=== PATIENT | female | born 1950 | race Caucasian/White ===

== ENCOUNTER 2018-02-12 18:41 | Inpatient (IN) ==
--- NOTE | 2018-02-12 22:26 | ED ---
HPI General Chief complaint: Abdominal Pain Stated complaint: general check up Time Seen by Provider: 02/12/18 21:45 Source: patient Mode of arrival: ambulatory Limitations: no limitations History of Present Illness HPI narrative: 67-year-old female with history of COPD here for evaluation of abdominal pain, abdominal bloating, nausea, and weight loss. Patient reports that her symptoms of nausea and abdominal discomfort have been intermittent for last few months, worse today. She describes diffuse abdominal bloating sensation/discomfort that is moderate, constant, worse with movements. Yesterday she had a few episodes of vomiting that she states was clear and consisted of stomach contents. She denies melena or hematochezia. No hematemesis. No fevers or chills. No urinary symptoms. No chest pain or dyspnea. Her last bowel movement was yesterday after not having had one for 8 days. Related Data Home Medications Medication Instructions Recorded Confirmed No Known Home Medications 02/12/18 02/12/18 Allergies Allergy/AdvReac Type Severity Reaction Status Date / Time codeine AdvReac Mild RASH Unverified 09/25/16 20:59 Review of Systems ROS: all other systems reviewed are negative [facility] Medical History Medical History COPD (chronic obstructive pulmonary disease) (Acute) Social History Social History Substance History: No History of Abuse Second Hand Smoke Exposure: No Smoking Status: Former smoker Tobacco Type: Cigarettes How Often Do You Have a Drink Containing Alcohol: Monthly or less Recent Travel in [facility] within the Last 8 Weeks: No Recent Out of Country Travel within the Last 8 Weeks: No Immunization History Tetanus Immunization: <5 Years Exam Narrative Exam Narrative: GENERAL: Well-developed, well-nourished, awake, alert, comfortable, no apparent distress. SKIN: Focused skin assessment warm/dry. HEAD: Atraumatic. Normocephalic. EYES: Pupils equal and round. No scleral icterus. No injection or drainage. ENT: Mucous membranes pink and moist. NECK: Trachea midline. No JVD. CARDIOVASCULAR: Regular rate and rhythm. No murmur appreciated. RESPIRATORY: No accessory muscle use. Clear to auscultation. Breath sounds equal bilaterally. GASTROINTESTINAL: Abdomen soft, moderately distended, mild diffuse tenderness, no hernias, normal bowel sounds, no peritoneal signs. MUSCULOSKELETAL: No obvious deformities. No clubbing. No cyanosis. No edema. NEUROLOGICAL: Awake and alert. No obvious cranial nerve deficits. Motor grossly within normal limits. Normal speech. PSYCHIATRIC: Appropriate mood and affect; insight and judgment normal. Course Initial Documented Vital Signs Temperature 97.5 F L 02/12/18 19:24 Pulse Rate 94 H 02/12/18 19:24 Respiratory Rate 16 02/12/18 19:24 Blood Pressure 117/65 02/12/18 19:24 Pulse Oximetry 96 02/12/18 19:24 Last Documented Vital Signs Temperature 97.5 F L 02/12/18 19:24 Pulse Rate 90 02/12/18 19:26 Respiratory Rate 20 02/12/18 19:26 Blood Pressure 136/83 02/12/18 19:26 Pulse Oximetry 97 02/12/18 19:26 Medical Decision Making MDM Narrative Medical decision making narrative: Vital signs, labs, and imaging studies were reviewed and were reviewed with the patient who was made aware of all findings. Patient's labs are remarkable for slight renal insufficiency. CT abdomen pelvis: CONCLUSION:1. Dilatation of the colon and to a lesser degree small bowel concerning for ileus or obstruction. There is a questionable transition point in the proximal sigmoid colon. This area could be further evaluated with direct inspection.2. Mild hiatal hernia.3. Emphysematous change in the lungs.4. Hepatic steatosis.5. Possible small gallstones.6. Calcifications at the posterior aspect of the uncinate process which may be from chronic pancreatitis. Otherwise the pancreas appears normal.7. Renal cysts Patient has had a few episodes of clear emesis today, stating that this is been a recurrent issue for the last 4 months where she vomits within an hour after eating or drinking. She reports that she had not had a bowel movement in 8 days until today. On exam her abdomen feels distended. With the above CT findings and report of significant weight loss over the last few months, I am concerned about the possibility of colon cancer, and made the patient aware of this possibility. It sounds as though the patient has been having intermittent bowel obstructions/partial bowel obstructions, and currently appears to at least have a partial SBO today. She will be admitted for further treatment and evaluation. She is amenable with this plan. Case discussed with hospitalist Dr Awad who will admit the patient to the hospitalist service. Medical Screen Exam Complete: Yes Emergency Medical Condition: Yes Differential Diagnosis Differential Diagnosis: Colitis, diverticulitis, pancreatitis, bowel obstruction less likely, appendicitis, mesenteric ischemia, IBS, ileus Lab Data Result diagrams: 02/12/18 22:00 02/12/18 22:00 Lab Results 02/12/18 02/12/18 02/12/18 Range/Units 22:00 22:00 22:00 WBC 9.5 (4.0-11.0) th/mm3 RBC 5.39 H (4.00-5.30) mil/mm3 Hgb 16.0 H (11.6-15.3) gm/dL Hct 46.9 H (35.0-46.0) % MCV 87.1 (80.0-100.0) fL MCH 29.6 (27.0-34.0) pg MCHC 34.0 (32.0-36.0) % RDW 16.9 (11.6-17.2) % Plt Count 259 (150-450) th/mm3 MPV 7.5 (7.0-11.0) fL Neut % (Auto) 89.2 H (16.0-70.0) % Lymph % (Auto) 8.1 L (9.0-44.0) % [place] % (Auto) 1.7 (0.0-8.0) % Eos % (Auto) 0.6 (0.0-4.0) % Baso % (Auto) 0.4 (0.0-2.0) % Neut # (Auto) 8.5 H (1.8-7.7) th/mm3 Lymph # (Auto) 0.8 L (1.0-4.8) th/mm3 [place] # (Auto) 0.2 (0.0-0.9) th/mm3 Eos # (Auto) 0.1 (0.0-0.4) th/mm3 Baso # (Auto) 0.0 (0.0-0.2) th/mm3 WBC Differential . Differential Comment Auto diff final PT 11.1 (9.8-11.6) sec INR 1.1 Ratio APTT 25.2 (23.4-31.7) sec Sodium 136 (136-145) meq/L Potassium 4.6 (3.5-5.1) meq/L Chloride 100 (98-107) meq/L Carbon Dioxide 22.1 (21.0-32.0) meq/L Anion Gap 14 (5-15) meq/L BUN 29 H (7-18) mg/dL Creatinine 1.48 H (0.50-1.00) mg/dL Estimated GFR 35 L (>89) mL/min Random Glucose 111 H (74-106) mg/dL Calcium 9.3 (8.5-10.1) mg/dL Magnesium 2.3 (1.5-2.5) mg/dL Total Bilirubin 0.9 (0.2-1.0) mg/dL AST 23 (15-37) U/L ALT 17 (10-53) U/L Alkaline Phosphatase 82 (45-117) U/L Total Protein 7.7 (6.4-8.2) g/dL Albumin 4.1 (3.4-5.0) g/dL Lipase 100 (73-393) U/L Imaging Data Radiologist's impression: Abdomen/Pelvis CT 02/12/18 21:55 CONCLUSION: 1. Dilatation of the colon and to a lesser degree small bowel concerning for ileus or obstruction. There is a questionable transition point in the proximal sigmoid colon. This area could be further evaluated with direct inspection. 2. Mild hiatal hernia. 3. Emphysematous change in the lungs. 4. Hepatic steatosis. 5. Possible small gallstones. 6. Calcifications at the posterior aspect of the uncinate process which may be from chronic pancreatitis. Otherwise the pancreas appears normal. 7. Renal cysts. Discharge Plan Discharge Disposition Patient Disposition: ED Admit(ED Internal Use Only) Discharge Condition Condition: Stable Discharge Details Diagnosis: Bowel obstruction, Renal insufficiency Physicians Team ED Provider: Wang Goodman Primary Care Provider: UNKNOWN, Rxs /Orders / Referrals /Forms Prescriptions: No Action No Known Home Medications RF: 0 Discharge Interventions Interventions: Vital Signs Last Done: 02/12/18 19:26 Status ED Status: With Doctor
[2018-02-12 22:46] LABS: Baso % (Auto) 0.4 % (0.0-2.0); Eos # (Auto) 0.1 th/mm3 (0.0-0.4); Eos % (Auto) 0.6 % (0.0-4.0); Hematocrit 46.9 % (35.0-46.0); Lymph # (Auto) 0.8 th/mm3 (1.0-4.8); Lymph % (Auto) 8.1 % (9.0-44.0); Mean Corpuscular Hemoglobin 29.6 pg (27.0-34.0); Mean Corpuscular Volume 87.1 fL (80.0-100.0); Mean Platelet Volume 7.5 fL (7.0-11.0); Mono # (Auto) 0.2 th/mm3 (0.0-0.9); Mono % (Auto) 1.7 % (0.0-8.0); Neut # (Auto) 8.5 th/mm3 (1.8-7.7); Neut % (Auto) 89.2 % (16.0-70.0); Platelet Count 259 th/mm3 (150-450); Red Blood Count 5.39 mil/mm3 (4.00-5.30); Red Cell Distribution Width 16.9 % (11.6-17.2); White Blood Count 9.5 th/mm3 (4.0-11.0)
[2018-02-12 23:00] LABS: Activated Partial Thrombo Time 25.2 sec (23.4-31.7); INR 1.1 Ratio; Prothrombin Time 11.1 sec (9.8-11.6)
[2018-02-12 23:01] LABS: Alanine Aminotransferase 17 U/L (10-53); Albumin 4.1 g/dL (3.4-5.0); Anion Gap 14 meq/L (5-15); Aspartate Aminotransferase 23 U/L (15-37); Blood Urea Nitrogen 29 mg/dL (7-18); Calcium 9.3 mg/dL (8.5-10.1); Carbon Dioxide 22.1 meq/L (21.0-32.0); Chloride 100 meq/L (98-107); Glomerular Filtration Rate 35 mL/min (>89); Glucose,Random 111 mg/dL (74-106); Lipase 100 U/L (73-393); Magnesium 2.3 mg/dL (1.5-2.5); Potassium 4.6 meq/L (3.5-5.1); Sodium 136 meq/L (136-145)
[2018-02-12 23:04] LABS: Alkaline Phosphatase 82 U/L (45-117); Total Protein 7.7 g/dL (6.4-8.2)
--- NOTE | 2018-02-13 | CT ---
EXAM DATE: 02/12/2018 11:38 PM EST AGE/SEX: 67 years / Female INDICATIONS: Diffuse abdominal pain off and on for 4 months. CLINICAL DATA: This is the patient's initial encounter. Patient reports that signs and symptoms have been present for 4 - 6 months and indicates a pain score of 6/10. MEDICAL/SURGICAL HISTORY: Chronic obstructive pulmonary disease. None. ORAL CONTRAST: No oral contrast ingested. RADIATION DOSE: 7.19 CTDI (mGy) COMPARISON: No prior exams available for comparison. TECHNIQUE: Multiple contiguous axial images were obtained through the abdomen and pelvis following b olus infusion of 50ml ml Visipaque 320 (iodixanol) nonionic water-soluble contrast as a single exam dose. No oral contrast ingested. Using automated exposure control and adjustment of the mA and/or k V according to patient size, radiation dose was kept as low as reasonably achievable to obtain optima l diagnostic quality images. DICOM format image data is available electronically for review and comp arison. FINDINGS: Lower Lungs: There is emphysematous change seen in the lower lungs. There is a mild amount of pericar dial fluid seen anteriorly. Liver: There is diffuse decreased attenuation to the liver. No focal hepatic lesions are seen. There is minimal calcification within the gallbladder likely related to small stones or calcification at th e gallbladder wall. The gallbladder is not distended. Spleen: Homogeneous density without enlargement. Pancreas: Unremarkable without mass. There are a few calcifications seen at the posterior aspect of the uncinate process. Kidneys: Normal in size and shape. No evidence of hydronephrosis. There is a 1.3 cm cyst seen at the anterior inferior aspect of the right kidney. There is a 0.8 cm exophytic cyst off the anterior late ral inferior left kidney. Adrenal Glands: Unremarkable. Aorta: The aorta and proximal iliac vessels are grossly unremarkable without aneurysmal dilation. Bowel/Mesentery: There is a mild hiatal hernia. The small bowel appears mildly distended. There is d istention of the colon with the transverse colon measuring up to 10 cm in diameter. There is a possib le transition point at the proximal sigmoid colon. The distal sigmoid colon and rectum appear less di stended. Abdominal Wall: Intact. Retroperitoneum: No evidence of adenopathy in the retrocrural, para-aortic, or deep pelvic regions. Bladder: Contours are smooth. Reproductive Organs: No abnormal masses or calcifications seen. Inguinal: The inguinal region is unremarkable without evidence of adenopathy. Bony Structures: There are some scattered hemangiomas seen in the lumbar spine. There is some degene rative change at the lower lumbar spine. CONCLUSION: 1. Dilatation of the colon and to a lesser degree small bowel concerning for ileus or obstruction. T here is a questionable transition point in the proximal sigmoid colon. This area could be further carine luated with direct inspection. 2. Mild hiatal hernia. 3. Emphysematous change in the lungs. 4. Hepatic steatosis. 5. Possible small gallstones. 6. Calcifications at the posterior aspect of the uncinate process which may be from chronic pancreat itis. Otherwise the pancreas appears normal. 7. Renal cysts. Electronically signed by: Jonathan Lambert MD Board Certified Radiologist 02/12/2018 11:59 PM EST
[2018-02-13] MEDS ORDERED: Sod Chloride 0.9% Inj 1,000 ML IV.CONT SCH (01:00)
[2018-02-13] MEDS: Sod Chloride 0.9% Inj 1,000 ML IV.CONT SCH ×2 (03:11→13:02)
[2018-02-13] MEDS ORDERED: Enoxaparin Inj 40 MG/0.4 ML Syringe SQ SCH (09:00)
--- NOTE | 2018-02-13 13:18 | P.CONGI ---
History of Present Illness Consult date: 02/13/18 Consult reason: Abnormal CT findings Chief complaint: Bowel Obstruction, Renal Insufficiency History of Present Illness: This is a 67-year-old female with past medical history significant for COPD and chronic kidney disease. Patient presented to the emergency department yesterday with complaints of nausea, vomiting and abdominal distention. Patient reports that she has been having intermittent episodes with vomiting since October. She states that she last vomited last night. Patient also reports intermittent issues with constipation since October, states that she took Dulcolax with some relief in symptoms. She has noticed that her stools have been very thin. She denies any hematochezia or melena. Patient denies any abdominal pain. She does report abdominal distention that has been present for the past couple days. She also reports unintentional weight loss, she is unsure of how much but states the people around her have been telling her that she has been losing weight. Patient denies family history significant for colon cancer. She has never had an EGD or colonoscopy in the past. She states that she has yearly Cologuard tests done which have all been negative. CT abdomen/pelvis with IV contrast done in the ER significant for dilatation of the colon and to a lesser degree small bowel concerning for ileus or obstruction. There is a questionable transition point in the proximal sigmoid colon. They are recommending evaluation with direct inspection. Also noted on the exam is a mild hiatal hernia, and if his evenness changes in the lungs, hepatic steatosis, possible small gallstones, calcifications at the posterior aspect of the uncinate process which may be from chronic pancreatitis otherwise the pancreas appears normal, and renal cyst. Patient had an NG tube placed to low intermittent wall suction while in the emergency department yesterday. She does note significant improvement with the NG tube. She states that she sneezed earlier today and that the NG tube became dislodged. She denies any nausea or vomiting at present and therefore this is being held off on at this time. <Shannan Grace - Last Filed: 02/13/18 13:20> Review of Systems Constitutional: Reports weight loss Gastrointestinal: Reports change in bowel habits, Reports constipation, Reports nausea, Reports vomiting, Denies abdominal pain, Denies black, tarry stools, Denies bright, red blood in stools, Denies coffee ground vomit, Denies vomiting blood <Shannan Grace - Last Filed: 02/13/18 13:20> PMFSH - History History Provided By: Patient - Medical History Medical History: Medical History (Last Updated 02/12/18 @ 19:26 by Winifred Brambila RN) COPD (chronic obstructive pulmonary disease) - Tobacco History Second Hand Smoke Exposure: No Tobacco Use In Past 30 Days: No Smoking Status: Former smoker Tobacco Type: Cigarettes - Alcohol History How Often Do You Have a Drink Containing Alcohol: Monthly or less - Substance Use History Substance History: No History of Abuse - Travel History Recent Travel in the [place] Within the Last 8 Weeks: No Recent Travel Out of the Country Within the Last 8 Weeks: No - Immunization History Tetanus Immunization: <5 Years <Shannan Grace - Last Filed: 02/13/18 13:20> - Medical History Medical History: Medical History (Last Updated 02/12/18 @ 19:26 by Winifred Brambila RN) COPD (chronic obstructive pulmonary disease) <Hank Mcneill - Last Filed: 02/13/18 15:39> Medications and Allergies Active Medications: Active Medications Acetaminophen (Tylenol) 650 mg PO Q4H PRN PRN Reason: Temp > 100.4 Enoxaparin Sodium (Lovenox Inj) 40 mg SQ Q24H [facility] Last Admin: 02/13/18 09:18 Dose: 40 mg Sodium Chloride (Ns Inj) 1,000 mls @ 100 mls/hr IV.CONT .Q10H [facility] Last Admin: 02/13/18 13:02 Dose: 100 mls/hr Ondansetron HCl (Zofran Inj) 4 mg IV.PUSH Q6H PRN PRN Reason: NAUSEA OR VOMITING Sodium Chloride (Ns Flush) 2 ml IV.FLUSH PRN PRN PRN Reason: FLUSH AFTER USING IV ACCESS Sodium Chloride (Ns Flush) 2 ml IV.FLUSH BID [facility] Last Admin: 02/13/18 09:18 Dose: 2 ml Sodium Chloride (Ns Flush) 2 ml IV.FLUSH PRN PRN PRN Reason: FLUSH AFTER USING IV ACCESS <Shannan Grace - Last Filed: 02/13/18 13:20> Active Medications: Active Medications Acetaminophen (Tylenol) 650 mg PO Q4H PRN PRN Reason: Temp > 100.4 Albuterol (Duoneb Neb (Prn)) 1 ampul NEB Q4HR NEB PRN PRN Reason: SHORTNESS OF BREATH/WHEEZING Enoxaparin Sodium (Lovenox Inj) 40 mg SQ Q24H [facility] Stop: 02/13/18 22:00 Last Admin: 02/13/18 09:18 Dose: 40 mg Dextrose/Sodium Chloride (D5w/1/2 Ns Inj) 1,000 mls @ 100 mls/hr IV.CONT .Q10H [facility] Ondansetron HCl (Zofran Inj) 4 mg IV.PUSH Q6H PRN PRN Reason: NAUSEA OR VOMITING Sodium Chloride (Ns Flush) 2 ml IV.FLUSH PRN PRN PRN Reason: FLUSH AFTER USING IV ACCESS Sodium Chloride (Ns Flush) 2 ml IV.FLUSH BID [facility] Last Admin: 02/13/18 09:18 Dose: 2 ml Sodium Chloride (Ns Flush) 2 ml IV.FLUSH PRN PRN PRN Reason: FLUSH AFTER USING IV ACCESS <Hank Mcneill - Last Filed: 02/13/18 15:39> Allergies Allergy/AdvReac Type Severity Reaction Status Date / Time codeine AdvReac Mild RASH Unverified 09/25/16 20:59 Home Medications Medication Instructions Recorded Confirmed Type Symbicort 2 BID 02/13/18 History Exam Vital signs: Vital Signs 02/12/18 19:24 02/12/18 19:26 02/13/18 02:05 Temperature 97.5 F L Pulse Rate 94 H 90 94 H Respiratory Rate 16 20 18 Blood Pressure 117/65 136/83 138/94 H Pulse Oximetry 96 97 96 02/13/18 04:00 02/13/18 08:00 Temperature 98.2 F 98 F Pulse Rate 77 77 Respiratory Rate 16 16 Blood Pressure 160/71 H 148/76 H Pulse Oximetry Intake & Output 02/12/18 02/13/18 02/13/18 18:59 06:59 18:59 Intake Total 150 / 150 1000 / 1000 Output Total 0 / 0 400 / 400 Balance 150 / 150 600 / 600 Weight 68.2 kg Intake: IV 150 / 150 1000 / 1000 NS Inj 1,000 ML @ 100 mls/hr IV 150 / 150 1000 / 1000 .CONT .Q10H [facility] Rx#:[id number] Oral 0 / 0 0 / 0 Output: Urine 0 / 0 400 / 400 Other: Date of Last Bowel Movement 02/11/18 02/11/18 - Constitutional no acute distress - Routine HEENT Exam Head: Present: normocephalic, atraumatic - Routine Respiratory Exam Absent: accessory muscle use - Routine Abdominal Exam Present: soft, normoactive bowel sounds, distended. Absent: tenderness - Routine Skin Exam Present: dry, warm - Routine Neurological Exam Present: alert, oriented X3 <Shannan Grace - Last Filed: 02/13/18 13:20> Vital signs: Vital Signs 02/12/18 19:24 02/12/18 19:26 02/13/18 02:05 Temperature 97.5 F L Pulse Rate 94 H 90 94 H Respiratory Rate 16 20 18 Blood Pressure 117/65 136/83 138/94 H Pulse Oximetry 96 97 96 02/13/18 04:00 02/13/18 08:00 Temperature 98.2 F 98 F Pulse Rate 77 77 Respiratory Rate 16 16 Blood Pressure 160/71 H 148/76 H Pulse Oximetry Intake & Output 02/12/18 02/13/18 02/13/18 18:59 06:59 18:59 Intake Total 150 / 150 1000 / 1000 Output Total 0 / 0 400 / 400 Balance 150 / 150 600 / 600 Weight 68.2 kg Intake: IV 150 / 150 1000 / 1000 NS Inj 1,000 ML @ 100 mls/hr IV 150 / 150 1000 / 1000 .CONT .Q10H [facility] Rx#:[id number] Oral 0 / 0 0 / 0 Output: Urine 0 / 0 400 / 400 Other: Date of Last Bowel Movement 02/11/18 02/11/18 <Hank Mcneill - Last Filed: 02/13/18 15:39> Results - Labs CBC & Chem 7: 02/12/18 22:00 02/12/18 22:00 Labs: Laboratory Results - last 24 hr 02/12/18 02/12/18 02/12/18 22:00 22:00 22:00 WBC 9.5 RBC 5.39 H Hgb 16.0 H Hct 46.9 H MCV 87.1 MCH 29.6 MCHC 34.0 RDW 16.9 Plt Count 259 MPV 7.5 Neut % (Auto) 89.2 H Lymph % (Auto) 8.1 L [place] % (Auto) 1.7 Eos % (Auto) 0.6 Baso % (Auto) 0.4 Neut # (Auto) 8.5 H Lymph # (Auto) 0.8 L [place] # (Auto) 0.2 Eos # (Auto) 0.1 Baso # (Auto) 0.0 WBC Differential . Differential Comment Auto diff final PT 11.1 INR 1.1 APTT 25.2 Sodium 136 Potassium 4.6 Chloride 100 Carbon Dioxide 22.1 Anion Gap 14 BUN 29 H Creatinine 1.48 H Estimated GFR 35 L Random Glucose 111 H Calcium 9.3 Magnesium 2.3 Total Bilirubin 0.9 AST 23 ALT 17 Alkaline Phosphatase 82 Total Protein 7.7 Albumin 4.1 Lipase 100 - Imaging Impressions Abdomen/Pelvis CT 02/12/18 21:55 CONCLUSION: 1. Dilatation of the colon and to a lesser degree small bowel concerning for ileus or obstruction. There is a questionable transition point in the proximal sigmoid colon. This area could be further evaluated with direct inspection. 2. Mild hiatal hernia. 3. Emphysematous change in the lungs. 4. Hepatic steatosis. 5. Possible small gallstones. 6. Calcifications at the posterior aspect of the uncinate process which may be from chronic pancreatitis. Otherwise the pancreas appears normal. 7. Renal cysts. <Shannan Grace - Last Filed: 02/13/18 13:20> - Labs CBC & Chem 7: 02/12/18 22:00 02/12/18 22:00 Labs: Laboratory Results - last 24 hr 02/12/18 02/12/18 02/12/18 22:00 22:00 22:00 WBC 9.5 RBC 5.39 H Hgb 16.0 H Hct 46.9 H MCV 87.1 MCH 29.6 MCHC 34.0 RDW 16.9 Plt Count 259 MPV 7.5 Neut % (Auto) 89.2 H Lymph % (Auto) 8.1 L [place] % (Auto) 1.7 Eos % (Auto) 0.6 Baso % (Auto) 0.4 Neut # (Auto) 8.5 H Lymph # (Auto) 0.8 L [place] # (Auto) 0.2 Eos # (Auto) 0.1 Baso # (Auto) 0.0 WBC Differential . Differential Comment Auto diff final PT 11.1 INR 1.1 APTT 25.2 Sodium 136 Potassium 4.6 Chloride 100 Carbon Dioxide 22.1 Anion Gap 14 BUN 29 H Creatinine 1.48 H Estimated GFR 35 L Random Glucose 111 H Calcium 9.3 Magnesium 2.3 Total Bilirubin 0.9 AST 23 ALT 17 Alkaline Phosphatase 82 Total Protein 7.7 Albumin 4.1 Lipase 100 - Imaging Impressions Abdomen/Pelvis CT 02/12/18 21:55 CONCLUSION: 1. Dilatation of the colon and to a lesser degree small bowel concerning for ileus or obstruction. There is a questionable transition point in the proximal sigmoid colon. This area could be further evaluated with direct inspection. 2. Mild hiatal hernia. 3. Emphysematous change in the lungs. 4. Hepatic steatosis. 5. Possible small gallstones. 6. Calcifications at the posterior aspect of the uncinate process which may be from chronic pancreatitis. Otherwise the pancreas appears normal. 7. Renal cysts. <Hank Mcneill - Last Filed: 02/13/18 15:39> Assessment and Plan - Plan Assessment Unintentional weight loss with CT findings concerning for obstruction and proximal sigmoid colonpatient is unsure of how much weight she has been losing but states that it is noticeable to the fact that people around her have been telling her. GI symptoms include nausea and vomiting that have been intermittent since October. She denies any hematemesis or coffee-ground emesis. Also reports constipation that is been intermittent since October with thin stools. Denies any hematochezia or melena. Patient has never had EGD or colonoscopy in the past. She reports that she has annual [place] guard testing done which is always been negative. She denies any family history significant for colon cancer. CT abdomen/pelvis with IV contrast done in the ER significant for dilatation of the colon and to a lesser degree small bowel concerning for ileus or obstruction. There is a questionable transition point in the proximal sigmoid colon. They are recommending evaluation with direct inspection. Also noted on the exam is a mild hiatal hernia, and if his evenness changes in the lungs, hepatic steatosis, possible small gallstones, calcifications at the posterior aspect of the uncinate process which may be from chronic pancreatitis otherwise the pancreas appears normal, and renal cyst. Patient had an NG tube placed to low intermittent wall suction while in the emergency department yesterday. She does note significant improvement with the NG tube. She states that she sneezed earlier today and that the NG tube became dislodged. She denies any nausea or vomiting at present and therefore this is being held off on at this time. COPD/chronic kidney diseaseper primary team Plan Patient likely unable to tolerate any p.o. Recommend flex sigmoidoscopy tomorrow Discussed this with the patient, she is agreeable Continue n.p.o. Reinsert NG if patient becomes nauseous or emesis is present Soapsuds enema x2 in a.m. Obtain consent for flex sigmoidoscopy Hold Lovenox in AM Antiemetics PRN Analgesics as needed Further recommendations to follow This patient has been seen and examined by myself and Dr. Mcneill and this note is written on his behalf <Shannan Grace - Last Filed: 02/13/18 13:20> - Attending Attestation Will proceed in AM with colonoscopy and biopsy. Consent obtained. Thank you for the consult. <Hank Mcneill - Last Filed: 02/13/18 15:39>
--- NOTE | 2018-02-13 14:49 | P.HPIM ---
History of Present Illness Primary Care Physician: UNKNOWN History of Present Illness: This patient is a 67-year-old female with a diagnosis of COPD and chronic kidney disease. The patient presents to the emergency room with complaints of nausea, vomiting. She has been having abdominal cramps and on and off constipation over the past few months. She has never had a colonoscopy in the past. She does report unintentional weight loss over the past year. She is not sure how much weight she has lost. Because of her symptoms she came into the emergency department for evaluation. She denies any fevers or chills, no chest pain, shortness of breath. Past medical history COPD, chronic kidney disease Surgical history tonsillectomy Social history the patient admits to an extensive tobacco smoking history, quit 6 years ago, drinks alcohol socially, no history of drug use Family history no family history of colon cancer or any other types of cancer. Inpatient Certification: I certify that the inpatient services were ordered in accordance with Medicare regulations governing the order. This includes certification that hospital inpatient services are reasonable and necessary and in the case of services not specified as inpatient-only under 42 CFR 419.22(n), that they are appropriately provided as inpatient services in accordance to with the 2-midnight benchmark under 43 CFR 412.3(e) Estimated Total Length of Stay (Days): 4 Plans for Post Hospital Care: Home Review of Systems All other systems reviewed negative except as stated in HPI [facility] - History History Provided By: Patient - Medical History Medical History: Medical History (Last Updated 02/12/18 @ 19:26 by Winifred Brambila RN) COPD (chronic obstructive pulmonary disease) - Tobacco History Second Hand Smoke Exposure: No Tobacco Use In Past 30 Days: No Smoking Status: Former smoker Tobacco Type: Cigarettes - Alcohol History How Often Do You Have a Drink Containing Alcohol: Monthly or less - Substance Use History Substance History: No History of Abuse - Travel History Recent Travel in the [place] Within the Last 8 Weeks: No Recent Travel Out of the Country Within the Last 8 Weeks: No - Immunization History Tetanus Immunization: <5 Years Medications and Allergies Active Medications: Active Medications Acetaminophen (Tylenol) 650 mg PO Q4H PRN PRN Reason: Temp > 100.4 Enoxaparin Sodium (Lovenox Inj) 40 mg SQ Q24H [facility] Last Admin: 02/13/18 09:18 Dose: 40 mg Sodium Chloride (Ns Inj) 1,000 mls @ 100 mls/hr IV.CONT .Q10H [facility] Last Admin: 02/13/18 13:02 Dose: 100 mls/hr Ondansetron HCl (Zofran Inj) 4 mg IV.PUSH Q6H PRN PRN Reason: NAUSEA OR VOMITING Sodium Chloride (Ns Flush) 2 ml IV.FLUSH PRN PRN PRN Reason: FLUSH AFTER USING IV ACCESS Sodium Chloride (Ns Flush) 2 ml IV.FLUSH BID [facility] Last Admin: 02/13/18 09:18 Dose: 2 ml Sodium Chloride (Ns Flush) 2 ml IV.FLUSH PRN PRN PRN Reason: FLUSH AFTER USING IV ACCESS Allergies Allergy/AdvReac Type Severity Reaction Status Date / Time codeine AdvReac Mild RASH Unverified 09/25/16 20:59 Home Medications Medication Instructions Recorded Confirmed Type Symbicort 2 BID 02/13/18 History Exam Vital signs: Vital Signs 02/12/18 19:24 02/12/18 19:26 02/13/18 02:05 Temperature 97.5 F L Pulse Rate 94 H 90 94 H Respiratory Rate 16 20 18 Blood Pressure 117/65 136/83 138/94 H Pulse Oximetry 96 97 96 02/13/18 04:00 02/13/18 08:00 Temperature 98.2 F 98 F Pulse Rate 77 77 Respiratory Rate 16 16 Blood Pressure 160/71 H 148/76 H Pulse Oximetry Intake & Output 02/12/18 02/13/18 02/13/18 18:59 06:59 18:59 Intake Total 150 / 150 1000 / 1000 Output Total 0 / 0 400 / 400 Balance 150 / 150 600 / 600 Weight 68.2 kg Intake: IV 150 / 150 1000 / 1000 NS Inj 1,000 ML @ 100 mls/hr IV 150 / 150 1000 / 1000 .CONT .Q10H [facility] Rx#:[id number] Oral 0 / 0 0 / 0 Output: Urine 0 / 0 400 / 400 Other: Date of Last Bowel Movement 02/11/18 02/11/18 Narrative: General patient in no acute distress, complains of occasional abdominal cramps. HEENT extraocular movements are intact, clear oropharyngeal mucosa, no JVD Cardiovascular S1-S2 audible, RRR, Respiratory clear to auscultation bilaterally Abdomen soft, nontender, nondistended, hypoactive bowel sounds Extremities no edema 2+ distal pulses in bilateral upper and lower extremities Neuro no focal neurological deficits Results - Labs CBC & Chem 7: 02/12/18 22:00 02/12/18 22:00 Labs: Short CBC 02/12/18 Range/Units 22:00 WBC 9.5 (4.0-11.0) th/mm3 Hgb 16.0 H (11.6-15.3) gm/dL Hct 46.9 H (35.0-46.0) % Plt Count 259 (150-450) th/mm3 BMP 02/12/18 22:00 Sodium 136 Potassium 4.6 Chloride 100 Carbon Dioxide 22.1 BUN 29 H Creatinine 1.48 H Calcium 9.3 Liver Function 02/12/18 Range/Units 22:00 Total Bilirubin 0.9 (0.2-1.0) mg/dL AST 23 (15-37) U/L ALT 17 (10-53) U/L Alkaline Phosphatase 82 (45-117) U/L Albumin 4.1 (3.4-5.0) g/dL - Imaging Impressions Abdomen/Pelvis CT 02/12/18 21:55 CONCLUSION: 1. Dilatation of the colon and to a lesser degree small bowel concerning for ileus or obstruction. There is a questionable transition point in the proximal sigmoid colon. This area could be further evaluated with direct inspection. 2. Mild hiatal hernia. 3. Emphysematous change in the lungs. 4. Hepatic steatosis. 5. Possible small gallstones. 6. Calcifications at the posterior aspect of the uncinate process which may be from chronic pancreatitis. Otherwise the pancreas appears normal. 7. Renal cysts. Caprini VTE Risk Assessment Caprini VTE Risk Assessment: Moderate/High Risk (score >= 2) Caprini Risk Assessment Model: Point Value = 1 Point Value = 2 Point Value = 3 Point Value = 5 Age 41-60 Minor surgery BMI > 25 kg/m2 Swollen legs Varicose veins or History of unexplained or recurrent spontaneous Oral contraceptives or hormone replacement Sepsis (< 1 month) Serious lung disease, including pneumonia (< 1 month) Abnormal pulmonary function Acute myocardial infarction Congestive heart failure (< 1 month) History of inflammatory bowel disease Medical patient at bed rest Age 61-74 Arthroscopic surgery Major open surgery (> 45 min) Laparoscopic surgery (> 45 min) Malignancy Confined to bed (> 72 hours) Immobilizing plaster cast Central venous access Age >= 75 History of VTE Family history of VTE Factor V Leiden Prothrombin [id number] Lupus anticoagulant Anticardiolipin antibodies Elevated serum homocysteine Heparin-induced thrombocytopenia Other congenital or acquired thrombophilia Stroke (< 1 month) Elective arthroplasty Hip, pelvis, or leg fracture Acute spinal cord injury (< 1 month) Prophylaxis Regimen: Total Risk Factor Score Risk Level Prophylaxis Regimen 0-1 Low Early ambulation 2 Moderate Order ONE of the following: *Sequential Compression Device (SCD) *Heparin 5000 units SQ BID 3-4 Higher Order ONE of the following medications: *Heparin 5000 units SQ TID *Enoxaparin/Lovenox 40 mg SQ daily (WT < 150 kg, CrCl > 30 mL/min) *Enoxaparin/Lovenox 30 mg SQ daily (WT < 150 kg, CrCl > 10-29 mL/min) *Enoxaparin/Lovenox 30 mg SQ BID (WT < 150 kg, CrCl > 30 mL/min) AND/OR *Sequential Compression Device (SCD) 5 or more Highest Order ONE of the following medications: *Heparin 5000 units SQ TID (Preferred with Epidurals) *Enoxaparin/Lovenox 40 mg SQ daily (WT < 150 kg, CrCl > 30 mL/min) *Enoxaparin/Lovenox 30 mg SQ daily (WT < 150 kg, CrCl > 10-29 mL/min) *Enoxaparin/Lovenox 30 mg SQ BID (WT < 150 kg, CrCl > 30 mL/min) AND *Sequential Compression Device (SCD) Assessment and Plan - Plan This patient is a 67-year-old female with a diagnosis of COPD and chronic kidney disease. The patient presents to the emergency room with complaints of nausea, vomiting. She has been having abdominal cramps and on and off constipation over the past few months. She has never had a colonoscopy in the past. She does report unintentional weight loss over the past year. She is not sure how much weight she has lost. Because of her symptoms she came into the emergency department for evaluation. She denies any fevers or chills, no chest pain, shortness of breath. 1. Partial small bowel obstruction concern for mass. The patient presents with the findings mentioned above. CT scan of the abdomen pelvis was done which showed dilatation of the colon and possible small bowel obstruction. There is a questionable transition point in the proximal sigmoid colon and recommendations are for the patient undergo direct inspection. GI was consulted to evaluate the patient. Plan is for the patient undergo sigmoidoscopy tomorrow a.m. Keep patient n.p.o. IV fluids will be changed to D5 half NS We will hold Lovenox tonight for procedure tomorrow a.m. We will follow-up with GI further recommendations after the procedure. 2. COPD Continue breathing treatments as needed. Currently the patient has no complete of shortness of breath on room air. Lovenox for DVT prophylaxis, will hold Lovenox after today's dose
[2018-02-13] MEDS: Dextrose 5%/NaCl 0.45% Inj 1,000 ML IV.CONT SCH (16:34)
[2018-02-13 22:06] LABS: Alpha Fetoprotein Tumor Marker 8.2 ng/mL (0.5-8.0); Carcinoembryonic Antigen 4.6 ng/mL (0.2-5.0)
[2018-02-13 22:28] LABS: Bacteria,Urine Occasional /hpf; Bilirubin,Urine Negative (Negative); Clarity,Urine Clear (Clear); Color,Urine Yellow (Yellw/Straw); Glucose,Urine (UA) Negative (Negative); Leukocyte Esterase,Urine Negative (Negative); Mucus,Urine Few /lpf (Occasional); Nitrite,Urine Negative (Negative); Specific Gravity,Urine 1.031 (1.002-1.035); Squamous Epithelial Cell,Urine 2 /hpf (0-5); Urobilinogen,Urine 0.2 mg/dL (Less than 2)
[2018-02-14] MEDS: Dextrose 5%/NaCl 0.45% Inj 1,000 ML IV.CONT SCH ×2 (01:25→15:43)
[2018-02-14 06:26] LABS: Baso % (Auto) 0.6 % (0.0-2.0); Eos # (Auto) 0.1 th/mm3 (0.0-0.4); Eos % (Auto) 2.4 % (0.0-4.0); Hematocrit 41.8 % (35.0-46.0); Hemoglobin 14.3 gm/dL (11.6-15.3); Lymph # (Auto) 0.8 th/mm3 (1.0-4.8); Lymph % (Auto) 14.6 % (9.0-44.0); Mean Corpuscular HGB Conc 34.3 % (32.0-36.0); Mean Corpuscular Volume 87.4 fL (80.0-100.0); Mean Platelet Volume 7.5 fL (7.0-11.0); Mono # (Auto) 0.3 th/mm3 (0.0-0.9); Mono % (Auto) 5.4 % (0.0-8.0); Neut # (Auto) 4.2 th/mm3 (1.8-7.7); Platelet Count 203 th/mm3 (150-450); Red Blood Count 4.78 mil/mm3 (4.00-5.30); Red Cell Distribution Width 16.8 % (11.6-17.2); White Blood Count 5.5 th/mm3 (4.0-11.0)
[2018-02-14 06:59] LABS: Calcium 8.9 mg/dL (8.5-10.1); Carbon Dioxide 24.2 meq/L (21.0-32.0); Potassium 3.7 meq/L (3.5-5.1)
[2018-02-14] MEDS ORDERED: Nystatin Liq 500,000 UNIT/5 ML UDC SWISH-SWAL SCH (09:00)
--- NOTE | 2018-02-14 10:41 | GIPROC ---
[facility] [address] [facility]. [facility] [place], [address] FLEXIBLE SIGMOIDOSCOPY PROCEDURE REPORT EXAM DATE: 02/14/2018 PATIENT NAME: Sabina Malhotra MR #: [id number] BIRTHDATE: 1950 ORDER #: [id number] ATTENDING: Hank Mcneill MD WASH TEST CHECKER: Husam Batista CST and Alysia Sesay RN STATUS: inpatient INDICATIONS: The patient is a 67 yr old female here for a flexible sigmoidoscopy due to an abnormal CT PROCEDURE PERFORMED: Flexible Sigmoidoscopy, diagnostic MEDICATIONS: Per Anesthesia and None. ESTIMATED BLOOD LOSS: None CONSENT: The patient understands the risks and benefits of the procedure and understands that these risks include, but are not limited to: sedation, allergic reaction, infection, perforation and/or bleeding. Alternative means of evaluation and treatment include, among others: physical exam, x-rays, and/or surgical intervention. The patient elects to proceed with this endoscopic procedure. medical equipment was checked for proper function. Hand hygiene and appropriate measures for infection prevention was taken. After the risks, benefits and alternatives of the procedure were thoroughly explained, Informed consent was verified, confirmed and timeout was successfully executed by the treatment team. A digital rectal exam revealed no abnormalities of the rectum The Pentax [id number] endoscope was introduced through the anus and advanced to the descending colon. The prep was poor. The instrument was then slowly withdrawn as the colon was fully examined. COLON FINDINGS: Extrinsic stenosis (narrowing) was found in the sigmoid colon. Retroflexed views revealed no abnormalities The scope was then completely withdrawn from the patient and the procedure terminated. ADVERSE EVENTS: There were no complications. IMPRESSIONS: 1. Stenosis (narrowing) in the sigmoid colon, likely extrinsic and normal mucosa, traversed with difficulty . 2. Dilated proximal part of the colon and filled with air and stool, decompression done. RECOMMENDATIONS: Monitor clinically and if symptoms recur will need surgical segmental resection. Liquid diet for now Examine rest of the colon after 4 weeks RECALL: Return 1 month Colonoscopy Hank Mcneill MD eSigned: Hank Mcneill MD 02/14/2018 10:40 AM cc: PATIENT NAME: Sabina Malhotra MR#: [id number]
[2018-02-14] MEDS ORDERED: *Ondansetron Inj 4 MG/2 ML Vial PERIprocedural Use ONLY ONE (10:45)
[2018-02-14] MEDS ORDERED: Lidocaine 2% 100 MG/5 ML Syringe ONE (11:03)
[2018-02-14] MEDS ORDERED: Labetalol HCl Inj 100 MG/20 ML Vial ONE (11:32)
--- NOTE | 2018-02-14 14:18 | ECG ---
Date Performed: 02/14/2018 Time Performed: 06:38:00 PTAGE: 67 years EKG: Sinus rhythm with PVC(s) Short OK interval Extensive ST-T changes are nonspecific Compared to previous tracing ST changes are more prominent, consider ischemia Borderline ECG PREVIOUS TRACING : 05/24/2013 09.58 DOCTOR: Sarmad Short Interpretating Date/Time 02/14/2018 14:16:49
[2018-02-14] MEDS: Budesonide-Formoterol 160/4.5 MCG 6 GM Inhaler INH SCH ×2 (15:41→21:13)
--- NOTE | 2018-02-14 17:03 | P.PNIM ---
Subjective Interval history: This patient is a 67-year-old female with a diagnosis of COPD and chronic kidney disease. The patient presents to the emergency room with complaints of nausea, vomiting. She has been having abdominal cramps and on and off constipation over the past few months. She has never had a colonoscopy in the past. She does report unintentional weight loss over the past year. She is not sure how much weight she has lost. Because of her symptoms she came into the emergency department for evaluation. She denies any fevers or chills, no chest pain, shortness of breath. Past medical history COPD, chronic kidney disease Surgical history tonsillectomy Social history the patient admits to an extensive tobacco smoking history, quit 6 years ago, drinks alcohol socially, no history of drug use Family history no family history of colon cancer or any other types of cancer. 1-4 HAVING PERSISTENT NAUSEA AND VOMITING STILL HAD COLONOSCOPY TODAY BY GI DW RN AND PT BLOOD PRESSURE IS ELEVATED ADD PRN CATAPRESS Physical Exam Vital signs: Vital Signs 02/13/18 20:00 02/14/18 00:00 02/14/18 04:00 Temperature 98.3 F 98.3 F 98.8 F Pulse Rate 86 76 83 Respiratory Rate 16 16 16 Blood Pressure 164/86 H 175/89 H 162/98 H Pulse Oximetry 96 96 98 02/14/18 07:00 02/14/18 07:39 02/14/18 10:40 Temperature 97.8 F 97.4 F L Pulse Rate 85 86 101 H Respiratory Rate 18 17 Blood Pressure 165/94 H 179/92 H Pulse Oximetry 94 L 93 L 02/14/18 10:45 02/14/18 11:00 02/14/18 11:15 Temperature Pulse Rate 87 93 H 71 Respiratory Rate 22 22 19 Blood Pressure 187/100 H 199/105 H Pulse Oximetry 93 L 93 L 91 L 02/14/18 11:25 02/14/18 11:27 02/14/18 11:30 Temperature Pulse Rate 98 H Respiratory Rate 19 Blood Pressure 222/100 H Pulse Oximetry 88 L 96 91 L 02/14/18 11:40 02/14/18 11:45 02/14/18 11:50 Temperature 97.6 F Pulse Rate 97 H 71 71 Respiratory Rate 19 19 18 Blood Pressure 186/93 H 168/86 H 168/86 H Pulse Oximetry 97 95 95 02/14/18 12:02 02/14/18 12:16 02/14/18 12:17 Temperature 97.7 F Pulse Rate 72 73 Respiratory Rate 18 16 Blood Pressure 186/107 H 138/73 Pulse Oximetry 100 97 02/14/18 15:00 02/14/18 15:37 Temperature 98 F Pulse Rate 81 81 Respiratory Rate 18 Blood Pressure 179/110 H Pulse Oximetry 99 Intake & Output 02/13/18 02/14/18 02/14/18 18:59 06:59 18:59 Intake Total 1300 / 1300 1000 / 1000 1100 / 1100 Output Total 1000 / 1000 500 / 500 Balance 300 / 300 500 / 500 1100 / 1100 Weight 69.1 kg Intake: IV 1300 / 1300 1000 / 1000 1000 / 1000 D5W/1/2 NS Inj 1,000 ML @ 100 1000 / 1000 1000 / 1000 mls/hr IV.CONT .Q10H [facility] Rx#: [id number] NS Inj 1,000 ML @ 100 mls/hr IV 1300 / 1300 .CONT .Q10H [facility] Rx#:[id number] Oral 0 / 0 Anesthesia Amount 100 / 100 Output: Urine 1000 / 1000 500 / 500 Other: Date of Last Bowel Movement 02/11/18 02/14/18 02/14/18 Narrative: General patient in SOME distress, complains of occasional abdominal cramps. HEENT extraocular movements are intact, clear oropharyngeal mucosa, no JVD Cardiovascular S1-S2 audible, RRR, Respiratory clear to auscultation bilaterally Abdomen soft, nontender, nondistended, hypoactive bowel sounds Extremities no edema 2+ distal pulses in bilateral upper and lower extremities Neuro no focal neurological deficits Insight and judgment is good Mood and behavior is appropriate Results - Labs CBC & Chem 7: 02/14/18 05:00 02/14/18 05:00 Laboratory Results - last 24 hr 02/12/18 02/13/18 02/13/18 22:05 21:36 21:36 WBC RBC Hgb Hct MCV MCH MCHC RDW Plt Count MPV Neut % (Auto) Lymph % (Auto) Walker % (Auto) Eos % (Auto) Baso % (Auto) Neut # (Auto) Lymph # (Auto) Walker # (Auto) Eos # (Auto) Baso # (Auto) WBC Differential Differential Comment Sodium Potassium Chloride Carbon Dioxide Anion Gap BUN Creatinine Estimated GFR Random Glucose Calcium Tumor Marker AFP 8.2 H Carcinoembryonic Ag 4.6 CA 19-9 Antigen 18.9 Urine Color Yellow Urine Clarity Clear Urine pH 5.0 Ur Specific [place] 1.031 Urine Protein 30 H Urine Glucose (UA) Negative Urine Ketones 80 or greater H Urine Occult Blood Negative Urine Nitrate Negative Urine Bilirubin Negative Urine Urobilinogen 0.2 Ur Leukocyte Esterase Negative Urine RBC Less than 1 Urine WBC 4 Ur Squamous Epith Cells 2 Urine Bacteria Occasional H Urine Mucus Few H Micro UA Comment Culture not ind Ur Microscopic Review Not Reportable Urine Culture Comments Culture not ind 02/14/18 02/14/18 05:00 05:00 WBC 5.5 RBC 4.78 Hgb 14.3 Hct 41.8 MCV 87.4 MCH 30.0 MCHC 34.3 RDW 16.8 Plt Count 203 MPV 7.5 Neut % (Auto) 77.0 H Lymph % (Auto) 14.6 Walker % (Auto) 5.4 Eos % (Auto) 2.4 Baso % (Auto) 0.6 Neut # (Auto) 4.2 Lymph # (Auto) 0.8 L Walker # (Auto) 0.3 Eos # (Auto) 0.1 Baso # (Auto) 0.0 WBC Differential . Differential Comment Auto diff final Sodium 135 L Potassium 3.7 D Chloride 103 Carbon Dioxide 24.2 Anion Gap 8 BUN 21 H Creatinine 0.97 Estimated GFR 57 L Random Glucose 119 H Calcium 8.9 Tumor Marker AFP Carcinoembryonic Ag CA 19-9 Antigen Urine Color Urine Clarity Urine pH Ur Specific [place] Urine Protein Urine Glucose (UA) Urine Ketones Urine Occult Blood Urine Nitrate Urine Bilirubin Urine Urobilinogen Ur Leukocyte Esterase Urine RBC Urine WBC Ur Squamous Epith Cells Urine Bacteria Urine Mucus Micro UA Comment Ur Microscopic Review Urine Culture Comments - Imaging ITS Impressions Abdomen/Pelvis CT 02/12/18 21:55 CONCLUSION: 1. Dilatation of the colon and to a lesser degree small bowel concerning for ileus or obstruction. There is a questionable transition point in the proximal sigmoid colon. This area could be further evaluated with direct inspection. 2. Mild hiatal hernia. 3. Emphysematous change in the lungs. 4. Hepatic steatosis. 5. Possible small gallstones. 6. Calcifications at the posterior aspect of the uncinate process which may be from chronic pancreatitis. Otherwise the pancreas appears normal. 7. Renal cysts. - Procedures IMPRESSIONS: 1. Stenosis (narrowing) in the sigmoid colon, likely extrinsic and normal mucosa, traversed with difficulty . 2. Dilated proximal part of the colon and filled with air and stool, decompression done. RECOMMENDATIONS: Monitor clinically and if symptoms recur will need surgical segmental resection. Liquid diet for now Examine rest of the colon after 4 weeks RECALL: Return 1 month Colonoscopy Assessment and Plan - Plan This patient is a 67-year-old female with a diagnosis of COPD and chronic kidney disease. The patient presents to the emergency room with complaints of nausea, vomiting. She has been having abdominal cramps and on and off constipation over the past few months. She has never had a colonoscopy in the past. She does report unintentional weight loss over the past year. She is not sure how much weight she has lost. Because of her symptoms she came into the emergency department for evaluation. She denies any fevers or chills, no chest pain, shortness of breath. 1. Partial small bowel obstruction concern for mass. The patient presents with the findings mentioned above. CT scan of the abdomen pelvis was done which showed dilatation of the colon and possible small bowel obstruction. There is a questionable transition point in the proximal sigmoid colon and recommendations are for the patient undergo direct inspection. GI was consulted to evaluate the patient. Plan is for the patient undergo sigmoidoscopy tomorrow a.m. Keep patient n.p.o. IV fluids will be changed to D5 half NS We will hold Lovenox tonight for procedure tomorrow a.m. We will follow-up with GI further recommendations after the procedure. Had colonoscopy today on February 14--needs repeat colonoscopy in 1 month Still having persistent nausea and vomiting We will add Compazine Hypertension we will make sure she has some Catapres available as needed for elevated blood pressure 2. COPD Continue breathing treatments as needed. Currently the patient has no complete of shortness of breath on room air. Lovenox for DVT prophylaxis, will hold Lovenox after today's dose MARSHA likely prerenal- IMPROVED Patient with serum creatinine of 1.48 on admission. Baseline is around 1.0. Patient has been started on IV fluids, we will follow-up a.m. labs. Avoid nephrotoxic agents.- IMPTOBRF PERSISTENT NAUSEA AND VOMITING CANNOT ADVANCE DIET YET STILL ON CLEARS AM LABS Code Status: FULL CODE Discussed Condition With: RN AND PT AND CM Discharge Planning: ONCE TOLERATING A DIET
[2018-02-14] MEDS ORDERED: Ondansetron Inj 8 MG in Sodium Chlor 0.9% Inj 50 ML IV.SIG PRN (17:57)
[2018-02-15] MEDS: Dextrose 5%/NaCl 0.45% Inj 1,000 ML IV.CONT SCH ×3 (00:36→18:27)
[2018-02-15 08:19] LABS: INR 1.3 Ratio
[2018-02-15] MEDS ORDERED: Influenza (Quadrivalent) Vaccine 0.5 ML Syringe IM ONE (09:00)
[2018-02-15] MEDS: Budesonide-Formoterol 160/4.5 MCG 6 GM Inhaler INH SCH ×2 (09:04→22:25)
--- NOTE | 2018-02-15 11:35 | P.PNGI ---
Subjective Interval history: Pt is resting in bed, feeling much better today, had BM, passing gas, denies abd pain, had some N/V this morning but states this has stopped 10 am <Gael Arizakimberley - Last Filed: 02/23/18 09:26> Physical Exam Vital signs: Vital Signs 02/14/18 20:00 02/14/18 21:11 02/15/18 00:00 Temperature 98.0 F 98.3 F Pulse Rate 87 93 H Respiratory Rate 14 16 Blood Pressure 161/98 H 164/88 H Pulse Oximetry 93 L 97 97 02/15/18 01:44 02/15/18 04:00 02/15/18 07:48 Temperature 98.8 F 97.8 F Pulse Rate 117 H 122 H 112 H Respiratory Rate 24 16 18 Blood Pressure 113/58 L 99/64 L Pulse Oximetry 93 L 98 93 L 02/15/18 11:18 02/15/18 12:00 02/15/18 16:00 Temperature 97.5 F L 98.0 F Pulse Rate 113 H 116 H Respiratory Rate 17 14 Blood Pressure 105/62 90/52 L Pulse Oximetry 95 94 L 94 L Intake & Output 02/14/18 02/15/18 02/15/18 18:59 06:59 18:59 Intake Total 1274 / 1274 1100 / 1100 Output Total 400 / 400 50 / 50 Balance 874 / 874 1050 / 1050 Weight 68.8 kg Intake: IV 1054 / 1054 1000 / 1000 D5W/1/2 NS Inj 1,000 ML @ 100 1000 / 1000 1000 / 1000 mls/hr IV.CONT .Q10H PAUL Rx#: [id number] Zofran Inj 8 MG In NS Inj 50 ML 54 / 54 @ 216 mls/hr IV.SIG Q4H PRN Rx #:[id number] Oral 120 / 120 100 / 100 Anesthesia Amount 100 / 100 Output: Urine 100 / 100 50 / 50 Urine/Stool Mix 300 / 300 Other: Date of Last Bowel Movement 02/14/18 02/14/18 02/14/18 # Bowel Movements 1 # Emeses 20 Weight On Admission 69.2 kg <Alyssa King - Last Filed: 02/15/18 17:45> Vital signs: Vital Signs 02/14/18 11:25 02/14/18 11:27 02/14/18 11:30 Temperature Pulse Rate 98 H Respiratory Rate 19 Blood Pressure 222/100 H Pulse Oximetry 88 L 96 91 L 02/14/18 11:40 02/14/18 11:45 02/14/18 11:50 Temperature 97.6 F Pulse Rate 97 H 71 71 Respiratory Rate 19 19 18 Blood Pressure 186/93 H 168/86 H 168/86 H Pulse Oximetry 97 95 95 02/14/18 12:02 02/14/18 12:16 02/14/18 12:17 Temperature 97.7 F Pulse Rate 72 73 Respiratory Rate 18 16 Blood Pressure 186/107 H 138/73 Pulse Oximetry 100 97 02/14/18 15:00 02/14/18 15:37 02/14/18 17:12 Temperature 98 F Pulse Rate 81 81 Respiratory Rate 18 Blood Pressure 179/110 H 137/84 Pulse Oximetry 99 02/14/18 20:00 02/14/18 21:11 02/15/18 00:00 Temperature 98.0 F 98.3 F Pulse Rate 87 93 H Respiratory Rate 14 16 Blood Pressure 161/98 H 164/88 H Pulse Oximetry 93 L 97 97 02/15/18 01:44 02/15/18 04:00 02/15/18 07:48 Temperature 98.8 F 97.8 F Pulse Rate 117 H 122 H 112 H Respiratory Rate 24 16 18 Blood Pressure 113/58 L 99/64 L Pulse Oximetry 93 L 98 93 L 02/15/18 11:18 Temperature Pulse Rate Respiratory Rate Blood Pressure Pulse Oximetry 95 Intake & Output 02/14/18 02/15/18 02/15/18 18:59 06:59 18:59 Intake Total 1274 / 1274 1100 / 1100 Output Total 400 / 400 50 / 50 Balance 874 / 874 1050 / 1050 Weight 68.8 kg Intake: IV 1054 / 1054 1000 / 1000 D5W/1/2 NS Inj 1,000 ML @ 100 1000 / 1000 1000 / 1000 mls/hr IV.CONT .Q10H PAUL Rx#: [id number] Zofran Inj 8 MG In NS Inj 50 ML 54 / 54 @ 216 mls/hr IV.SIG Q4H PRN Rx #:[id number] Oral 120 / 120 100 / 100 Anesthesia Amount 100 / 100 Output: Urine 100 / 100 50 / 50 Urine/Stool Mix 300 / 300 Other: Date of Last Bowel Movement 02/14/18 02/14/18 # Bowel Movements 1 # Emeses 20 Weight On Admission 69.2 kg Narrative: General patient in SOME distress, complains of occasional abdominal cramps. HEENT extraocular movements are intact, clear oropharyngeal mucosa, no JVD Cardiovascular S1-S2 audible, RRR, Respiratory clear to auscultation bilaterally Abdomen soft, nontender, nondistended, hypoactive bowel sounds Extremities no edema 2+ distal pulses in bilateral upper and lower extremities Neuro no focal neurological deficits Insight and judgment is good Mood and behavior is appropriate - Constitutional no acute distress - Routine HEENT Exam Head: Present: normocephalic - Routine Respiratory Exam Present: CTA bilaterally - Routine Cardiovascular Exam Present: RRR - Routine Abdominal Exam Present: soft, normoactive bowel sounds. Absent: tenderness, distended - Routine Skin Exam Present: intact, dry. Absent: jaundice - Routine Neurological Exam Present: alert, oriented X3 <Wes Ariza - Last Filed: 02/23/18 09:26> Results - Labs CBC & Chem 7: 02/15/18 06:00 02/15/18 06:10 Laboratory Results - last 24 hr 02/15/18 02/15/18 02/15/18 06:00 06:10 06:10 WBC 5.2 RBC 4.87 Hgb 14.9 Hct 41.9 MCV 86.1 MCH 30.7 MCHC 35.6 RDW 17.2 Plt Count 158 MPV 7.6 Neut % (Auto) 92.0 H Lymph % (Auto) 6.7 L Guthrie % (Auto) 1.2 Eos % (Auto) 0.1 Baso % (Auto) 0.0 Neut # (Auto) 4.8 Lymph # (Auto) 0.3 L Guthrie # (Auto) 0.1 Eos # (Auto) 0.0 Baso # (Auto) 0.0 WBC Differential . Differential Comment Auto diff final PT 13.0 H INR 1.3 Sodium Potassium Chloride Carbon Dioxide Anion Gap BUN Creatinine Estimated GFR Random Glucose Hemoglobin A1c 5.5 Calcium Phosphorus Magnesium Total Bilirubin AST ALT Alkaline Phosphatase Total Protein Albumin Amylase Lipase TSH Free T4 02/15/18 06:10 WBC RBC Hgb Hct MCV MCH MCHC RDW Plt Count MPV Neut % (Auto) Lymph % (Auto) Guthrie % (Auto) Eos % (Auto) Baso % (Auto) Neut # (Auto) Lymph # (Auto) Guthrie # (Auto) Eos # (Auto) Baso # (Auto) WBC Differential Differential Comment PT INR Sodium 135 L Potassium 3.8 Chloride 99 Carbon Dioxide 24.2 Anion Gap 12 BUN 29 H Creatinine 1.67 H Estimated GFR 31 L Random Glucose 140 H Hemoglobin A1c Calcium 8.3 L Phosphorus 3.1 Magnesium 1.6 Total Bilirubin 1.0 AST 28 ALT 17 Alkaline Phosphatase 60 Total Protein 6.0 L D Albumin 3.1 L Amylase 42 Lipase 71 L TSH 0.571 Free T4 1.69 H <Alyssa King - Last Filed: 02/15/18 17:45> - Labs CBC & Chem 7: 02/16/18 04:16 02/18/18 04:00 Laboratory Results - last 24 hr 02/15/18 06:10 PT 13.0 H INR 1.3 - Procedures IMPRESSIONS: 1. Stenosis (narrowing) in the sigmoid colon, likely extrinsic and normal mucosa, traversed with difficulty . 2. Dilated proximal part of the colon and filled with air and stool, decompression done. RECOMMENDATIONS: Monitor clinically and if symptoms recur will need surgical segmental resection. Liquid diet for now Examine rest of the colon after 4 weeks RECALL: Return 1 month Colonoscopy <Wes Ariza - Last Filed: 02/23/18 09:26> Assessment and Plan - Attending Attestation seen, examined agree with above egd/colon saturday with better prep clear liquid diet <Alyssa King - Last Filed: 02/15/18 17:45> - Plan Assessment Unintentional weight loss with CT findings concerning for obstruction and proximal sigmoid colon S/P Colonoscopy on 02/14/18 1. Stenosis (narrowing) in the sigmoid colon, likely extrinsic and normal mucosa, traversed with difficulty . 2. Dilated proximal part of the colon and filled with air and stool, decompression done. patient is unsure of how much weight she has been losing but states that it is noticeable to the fact that people around her have been telling her. GI symptoms included nausea and vomiting that have been intermittent since October. CT abdomen/pelvis with IV contrast done in the ER significant for dilatation of the colon and to a lesser degree small bowel concerning for ileus or obstruction. There is a questionable transition point in the proximal sigmoid colon. They are recommending evaluation with direct inspection. Also noted on the exam is a mild hiatal hernia, and if his evenness changes in the lungs, hepatic steatosis, possible small gallstones, calcifications at the posterior aspect of the uncinate process which may be from chronic pancreatitis otherwise the pancreas appears normal, and renal cyst. Patient had an NG tube placed to low intermittent wall suction while in the emergency department, but was dislodged after a sneeze COPD/chronic kidney diseaseper primary team Plan clears Reinsert NG if N/V recurred, pt doing better now Bowel regimen Consider repeat Colonoscopy if pt agrees Consider surgical evaluation if no improvement Antiemetics PRN Further recommendations to follow This patient has been seen and examined by myself and Dr. King and this note is written on her behalf <Wes Ariza - Last Filed: 02/23/18 09:26>
--- NOTE | 2018-02-15 11:59 | P.PNIM ---
Subjective Interval history: This patient is a 67-year-old female with a diagnosis of COPD and chronic kidney disease. The patient presents to the emergency room with complaints of nausea, vomiting. She has been having abdominal cramps and on and off constipation over the past few months. She has never had a colonoscopy in the past. She does report unintentional weight loss over the past year. She is not sure how much weight she has lost. Because of her symptoms she came into the emergency department for evaluation. She denies any fevers or chills, no chest pain, shortness of breath. Past medical history COPD, chronic kidney disease Surgical history tonsillectomy Social history the patient admits to an extensive tobacco smoking history, quit 6 years ago, drinks alcohol socially, no history of drug use Family history no family history of colon cancer or any other types of cancer. 1-4 HAVING PERSISTENT NAUSEA AND VOMITING STILL HAD COLONOSCOPY TODAY BY GI FANNIE RN AND PT BLOOD PRESSURE IS ELEVATED ADD PRN CATAPRES 1-5 HAD PERSISTENT NAUSEA AND VOMITING ALL NIGHT HAS NOT TOLERATED ANY FOOD OR MEAL YET LABS ARE PENDING WILL ADJUST PENDING ON THAT FANNIE RN AND PT AM LABS NEEDS TO TOLERATE A DIET WELL BEFORE DISCHARGE Physical Exam Vital signs: Vital Signs 02/14/18 12:02 02/14/18 12:16 02/14/18 12:17 Temperature 97.7 F Pulse Rate 72 73 Respiratory Rate 18 16 Blood Pressure 186/107 H 138/73 Pulse Oximetry 100 97 02/14/18 15:00 02/14/18 15:37 02/14/18 17:12 Temperature 98 F Pulse Rate 81 81 Respiratory Rate 18 Blood Pressure 179/110 H 137/84 Pulse Oximetry 99 02/14/18 20:00 02/14/18 21:11 02/15/18 00:00 Temperature 98.0 F 98.3 F Pulse Rate 87 93 H Respiratory Rate 14 16 Blood Pressure 161/98 H 164/88 H Pulse Oximetry 93 L 97 97 02/15/18 01:44 02/15/18 04:00 02/15/18 07:48 Temperature 98.8 F 97.8 F Pulse Rate 117 H 122 H 112 H Respiratory Rate 24 16 18 Blood Pressure 113/58 L 99/64 L Pulse Oximetry 93 L 98 93 L 02/15/18 11:18 Temperature Pulse Rate Respiratory Rate Blood Pressure Pulse Oximetry 95 Intake & Output 0102/15/18 02/15/18 18:59 06:59 18:59 Intake Total 1274 / 1274 1100 / 1100 Output Total 400 / 400 50 / 50 Balance 874 / 874 1050 / 1050 Weight 68.8 kg Intake: IV 1054 / 1054 1000 / 1000 D5W/1/2 NS Inj 1,000 ML @ 100 1000 / 1000 1000 / 1000 mls/hr IV.CONT .Q10H PAUL Rx#: [id number] Zofran Inj 8 MG In NS Inj 50 ML 54 / 54 @ 216 mls/hr IV.SIG Q4H PRN Rx #:[id number] Oral 120 / 120 100 / 100 Anesthesia Amount 100 / 100 Output: Urine 100 / 100 50 / 50 Urine/Stool Mix 300 / 300 Other: Date of Last Bowel Movement 02/14/18 02/14/18 # Bowel Movements 1 # Emeses 20 Weight On Admission 69.2 kg Narrative: General patient in SOME distress, complains of occasional abdominal cramps. HEENT extraocular movements are intact, clear oropharyngeal mucosa, no JVD Cardiovascular S1-S2 audible, RRR, Respiratory clear to auscultation bilaterally Abdomen soft, nontender, nondistended, hypoactive bowel sounds Extremities no edema 2+ distal pulses in bilateral upper and lower extremities Neuro no focal neurological deficits Insight and judgment is good Mood and behavior is appropriate Results - Labs CBC & Chem 7: 02/14/18 05:00 02/14/18 05:00 Laboratory Results - last 24 hr 02/15/18 06:10 PT 13.0 H INR 1.3 - Imaging ITS Impressions Abdomen/Pelvis CT 02/12/18 21:55 CONCLUSION: 1. Dilatation of the colon and to a lesser degree small bowel concerning for ileus or obstruction. There is a questionable transition point in the proximal sigmoid colon. This area could be further evaluated with direct inspection. 2. Mild hiatal hernia. 3. Emphysematous change in the lungs. 4. Hepatic steatosis. 5. Possible small gallstones. 6. Calcifications at the posterior aspect of the uncinate process which may be from chronic pancreatitis. Otherwise the pancreas appears normal. 7. Renal cysts. - Procedures IMPRESSIONS: 1. Stenosis (narrowing) in the sigmoid colon, likely extrinsic and normal mucosa, traversed with difficulty . 2. Dilated proximal part of the colon and filled with air and stool, decompression done. RECOMMENDATIONS: Monitor clinically and if symptoms recur will need surgical segmental resection. Liquid diet for now Examine rest of the colon after 4 weeks RECALL: Return 1 month Colonoscopy Assessment and Plan - Plan This patient is a 67-year-old female with a diagnosis of COPD and chronic kidney disease. The patient presents to the emergency room with complaints of nausea, vomiting. She has been having abdominal cramps and on and off constipation over the past few months. She has never had a colonoscopy in the past. She does report unintentional weight loss over the past year. She is not sure how much weight she has lost. Because of her symptoms she came into the emergency department for evaluation. She denies any fevers or chills, no chest pain, shortness of breath. 1. Partial small bowel obstruction concern for mass. The patient presents with the findings mentioned above. CT scan of the abdomen pelvis was done which showed dilatation of the colon and possible small bowel obstruction. There is a questionable transition point in the proximal sigmoid colon and recommendations are for the patient undergo direct inspection. GI was consulted to evaluate the patient. Plan is for the patient undergo sigmoidoscopy tomorrow a.m. Keep patient n.p.o. IV fluids will be changed to D5 half NS We will hold Lovenox tonight for procedure tomorrow a.m. We will follow-up with GI further recommendations after the procedure. Had colonoscopy today on February 14--needs repeat colonoscopy in 1 month Still having persistent nausea and vomiting We will add Compazine 1-5 STILL HAVING NAUSEA AND VOMITING HAS NOT TOLERATED A DIET OF ANY TYPE YET Hypertension we will make sure she has some Catapres available as needed for elevated blood pressure 2. COPD Continue breathing treatments as needed. Currently the patient has no complete of shortness of breath on room air. Lovenox for DVT prophylaxis, will hold Lovenox after today's dose MARSHA likely prerenal- IMPROVED Patient with serum creatinine of 1.48 on admission. Baseline is around 1.0. Patient has been started on IV fluids, we will follow-up a.m. labs. Avoid nephrotoxic agents.- IMPROVED PERSISTENT NAUSEA AND VOMITING CANNOT ADVANCE DIET YET STILL ON CLEARS AM LABS. CANNOT DC TO HOME UNTIL TOLERATING A DIET Code Status: FULL CODE Discussed Condition With: RN AND PT AND GI Discharge Planning: ONCE TOLERATING A DIET
[2018-02-15 12:56] LABS: Eos % (Auto) 0.1 % (0.0-4.0); Hematocrit 41.9 % (35.0-46.0); Hemoglobin 14.9 gm/dL (11.6-15.3); Lymph # (Auto) 0.3 th/mm3 (1.0-4.8); Lymph % (Auto) 6.7 % (9.0-44.0); Mean Corpuscular HGB Conc 35.6 % (32.0-36.0); Mean Corpuscular Hemoglobin 30.7 pg (27.0-34.0); Mean Corpuscular Volume 86.1 fL (80.0-100.0); Mean Platelet Volume 7.6 fL (7.0-11.0); Mono # (Auto) 0.1 th/mm3 (0.0-0.9); Mono % (Auto) 1.2 % (0.0-8.0); Neut # (Auto) 4.8 th/mm3 (1.8-7.7); Platelet Count 158 th/mm3 (150-450); Red Blood Count 4.87 mil/mm3 (4.00-5.30); Red Cell Distribution Width 17.2 % (11.6-17.2); White Blood Count 5.2 th/mm3 (4.0-11.0)
[2018-02-15 12:59] LABS: Hemoglobin A1c 5.5 % (4.3-6.0)
[2018-02-15 13:09] LABS: Anion Gap 12 meq/L (5-15)
[2018-02-15 13:21] LABS: Alanine Aminotransferase 17 U/L (10-53); Albumin 3.1 g/dL (3.4-5.0); Alkaline Phosphatase 60 U/L (45-117); Amylase 42 U/L (25-115); Aspartate Aminotransferase 28 U/L (15-37); Blood Urea Nitrogen 29 mg/dL (7-18); Calcium 8.3 mg/dL (8.5-10.1); Carbon Dioxide 24.2 meq/L (21.0-32.0); Chloride 99 meq/L (98-107); Free T4 (Free Thyroxine) 1.69 ng/dL (0.76-1.46); Glomerular Filtration Rate 31 mL/min (>89); Glucose,Random 140 mg/dL (74-106); Lipase 71 U/L (73-393); Magnesium 1.6 mg/dL (1.5-2.5); Phosphorus 3.1 mg/dL (2.5-4.9); Potassium 3.8 meq/L (3.5-5.1); Thyroid Stimulating Hormone 0.571 uIU/mL (0.358-3.740)
[2018-02-15 13:22] LABS: Sodium 135 meq/L (136-145)
--- NOTE | 2018-02-15 21:11 | XR ---
EXAM DATE: 02/15/2018 9:03 PM EST AGE/SEX: 67 years / Female INDICATIONS: Pleurisy. CLINICAL DATA: This is the patient's initial encounter. Patient reports that signs and symptoms have been present for 1 day and indicates a pain score of 0/10. MEDICAL/SURGICAL HISTORY: Chronic obstructive pulmonary disease. None. COMPARISON: [facility] – [place], CHEST PA & LAT, 08/18/2010. . FINDINGS: Single AP view the chest. Confluent opacity of the lateral left lung base indicating patchy pulmonary consolidation. Possible small left pleural effusion. Right lung clear. No evidence of pneumothorax. Cardiac silhouette is mildly prominent. CONCLUSION: Lateral left lung base consolidation and possible small left pleural effusion. Electronically signed by: Timur Silva MD Board Certified Radiologist 02/15/2018 9:10 PM EST
[2018-02-15] MEDS ORDERED: Albumin Human 25% Inj 50 ML IV.SIG ONE (22:30)
[2018-02-16] MEDS: Dextrose 5%/NaCl 0.45% Inj 1,000 ML IV.CONT SCH ×3 (03:34→15:21)
[2018-02-16 06:11] LABS: Albumin 2.3 g/dL (3.4-5.0); Calcium 7.3 mg/dL (8.5-10.1); Carbon Dioxide 23.5 meq/L (21.0-32.0); Magnesium 1.6 mg/dL (1.5-2.5); Phosphorus 3.6 mg/dL (2.5-4.9); Potassium 3.2 meq/L (3.5-5.1); Total Protein 4.8 g/dL (6.4-8.2)
[2018-02-16 06:12] LABS: Eos % (Auto) 0.4 % (0.0-4.0); Hematocrit 32.6 % (35.0-46.0); Hemoglobin 11.3 gm/dL (11.6-15.3); Lymph # (Auto) 0.5 th/mm3 (1.0-4.8); Lymph % (Auto) 10.4 % (9.0-44.0); Mean Corpuscular HGB Conc 34.8 % (32.0-36.0); Mean Corpuscular Hemoglobin 30.1 pg (27.0-34.0); Mean Corpuscular Volume 86.6 fL (80.0-100.0); Mean Platelet Volume 7.7 fL (7.0-11.0); Mono # (Auto) 0.1 th/mm3 (0.0-0.9); Mono % (Auto) 1.4 % (0.0-8.0); Neut # (Auto) 4.3 th/mm3 (1.8-7.7); Neut % (Auto) 87.8 % (16.0-70.0); Platelet Count 105 th/mm3 (150-450); Red Blood Count 3.77 mil/mm3 (4.00-5.30); Red Cell Distribution Width 17.7 % (11.6-17.2); White Blood Count 4.9 th/mm3 (4.0-11.0)
[2018-02-16] MEDS: Budesonide-Formoterol 160/4.5 MCG 6 GM Inhaler INH SCH ×2 (08:41→20:59)
[2018-02-16] MEDS: Albumin Human 25% Inj 50 ML IV.SIG SCH ×2 (10:12→20:51)
--- NOTE | 2018-02-16 13:21 | P.PNIM ---
Subjective Interval history: Nursing denies any setbacks since last night. Patient says her pain is gone, no longer has nausea. Says that the food she is eating is "boring" and is interested in advancing. Physical Exam Vital signs: Vital Signs 02/15/18 16:00 02/15/18 20:00 02/15/18 20:15 Temperature 98.0 F 97.9 F Pulse Rate 116 H 110 H Respiratory Rate 14 18 Blood Pressure 90/52 L 85/49 L 88/52 L Pulse Oximetry 94 L 97 02/15/18 20:40 02/15/18 21:10 02/15/18 21:25 Temperature Pulse Rate 86 Respiratory Rate 24 Blood Pressure 87/53 L 94/55 L Pulse Oximetry 94 L 94 L 02/15/18 22:25 02/15/18 23:00 02/16/18 00:00 Temperature 98.4 F 97.7 F Pulse Rate 86 67 92 H Respiratory Rate 20 25 H 17 Blood Pressure 97/52 L 91/64 L 97/57 L Pulse Oximetry 94 L 94 L 96 02/16/18 00:53 02/16/18 03:44 02/16/18 08:00 Temperature 98.1 F 98.8 F Pulse Rate 99 H 106 H 111 H Respiratory Rate 15 18 17 Blood Pressure 105/57 L 122/73 Pulse Oximetry 94 L 92 L 96 02/16/18 12:00 02/16/18 13:08 Temperature 98.2 F Pulse Rate 107 H Respiratory Rate 19 Blood Pressure 136/77 Pulse Oximetry 99 97 Intake & Output 02/15/18 02/16/18 02/16/18 18:59 06:59 18:59 Intake Total 120 / 120 1150 / 1150 50 / 50 Output Total 500 / 500 Balance 120 / 120 650 / 650 50 / 50 Weight 70.1 kg Intake: IV 1050 / 1050 50 / 50 D5W/1/2 NS Inj 1,000 ML @ 100 1000 / 1000 mls/hr IV.CONT .Q10H PAUL Rx#: [id number] Flexbumin 25% Inj 50 ML @ 60 50 / 50 50 / 50 mls/hr IV.SIG Q12H PAUL Rx#: [id number] Oral 120 / 120 100 / 100 Output: Urine 500 / 500 Other: # Voids 2 Date of Last Bowel Movement 02/14/18 01/16/19 02/16/18 # Bowel Movements 1 # Emeses 2 Narrative: Clear lungs bilaterally, unlabored breathing Heart sounds regular rate and rhythm Abdomen soft, nontender, nondistended Lying in bed, awake and alert, no acute distress Results - Labs CBC & Chem 7: 02/16/18 04:16 02/16/18 04:16 Laboratory Results - last 24 hr 02/15/18 02/15/18 02/15/18 06:10 06:10 20:22 WBC RBC Hgb Hct MCV MCH MCHC RDW Plt Count MPV Neut % (Auto) Lymph % (Auto) Gaines % (Auto) Eos % (Auto) Baso % (Auto) Neut # (Auto) Lymph # (Auto) Gaines # (Auto) Eos # (Auto) Baso # (Auto) WBC Differential Differential Comment Sodium 135 L Potassium 3.8 Chloride 99 Carbon Dioxide 24.2 Anion Gap 12 BUN 29 H Creatinine 1.67 H Estimated GFR 31 L POC Glucose 143 H Random Glucose 140 H Hemoglobin A1c 5.5 Calcium 8.3 L Calcium Adj for Albumin Phosphorus 3.1 Magnesium 1.6 Total Bilirubin 1.0 AST 28 ALT 17 Alkaline Phosphatase 60 Total Protein 6.0 L D Albumin 3.1 L Amylase 42 Lipase 71 L TSH 0.571 Free T4 1.69 H 02/16/18 02/16/18 04:16 04:16 WBC 4.9 RBC 3.77 L Hgb 11.3 L D Hct 32.6 L MCV 86.6 MCH 30.1 MCHC 34.8 RDW 17.7 H Plt Count 105 L D MPV 7.7 Neut % (Auto) 87.8 H Lymph % (Auto) 10.4 Gaines % (Auto) 1.4 Eos % (Auto) 0.4 Baso % (Auto) 0.0 Neut # (Auto) 4.3 Lymph # (Auto) 0.5 L Gaines # (Auto) 0.1 Eos # (Auto) 0.0 Baso # (Auto) 0.0 WBC Differential . Differential Comment Auto diff final Sodium 135 L Potassium 3.2 L Chloride 102 Carbon Dioxide 23.5 Anion Gap 10 BUN 40 H Creatinine 1.98 H Estimated GFR 25 L POC Glucose Random Glucose 111 H Hemoglobin A1c Calcium 7.3 L* D Calcium Adj for Albumin 8.7 Phosphorus 3.6 Magnesium 1.6 Total Bilirubin 0.7 AST 27 ALT 18 Alkaline Phosphatase 46 Total Protein 4.8 L D Albumin 2.3 L D Amylase Lipase TSH Free T4 - Imaging Impressions Chest X-Ray 02/15/18 20:36 CONCLUSION: Lateral left lung base consolidation and possible small left pleural effusion. - Procedures IMPRESSIONS: 1. Stenosis (narrowing) in the sigmoid colon, likely extrinsic and normal mucosa, traversed with difficulty . 2. Dilated proximal part of the colon and filled with air and stool, decompression done. RECOMMENDATIONS: Monitor clinically and if symptoms recur will need surgical segmental resection. Liquid diet for now Examine rest of the colon after 4 weeks RECALL: Return 1 month Colonoscopy Assessment and Plan - Plan This patient is a 67-year-old female admitted with nausea, vomiting and abdominal pain. Admitted with possible small bowel obstruction based upon CT findings. Started on IV fluids underwent colonoscopy showing some colonic narrowing, no decompression. Abd pain/N/V -CT abd showing dilatation of colon possible small SBO, possible transition point Status post colonoscopy showing sigmoid stenosis, underwent dilatation decompression -improved s/p colonoscopy, tolerating liquids Hypokalemia HypoMg MARSHA -worsening, likely transient - trend in AM, continue IVFs - replenish with Kcl and Mg Hypertension -Catapres as needed COPD -stable Discharge Planning: pending improvement in renal function and GI stability
[2018-02-16] MEDS ORDERED: PEG 3350/E-Lyte Soln 4000 ML Bottle PO ONE (14:38)
[2018-02-16] MEDS ORDERED: Potassium Chloride Inj 20 MEQ, Magnesium Sulfate Inj 2 GM in Sod Chloride 0.9% Inj 1,00... IV.SIG ONE (15:00)
[2018-02-16] MEDS: Sod Chloride 0.9% Inj 1,000 ML IV.CONT SCH ×2 (15:19→20:56)
--- NOTE | 2018-02-16 15:30 | P.PNGI ---
Subjective Interval history: Pt is resting in bed, tolerating clears ok. Having BMs, denies nausea, vomiting or abd pain. Dried dark stools noted on the floor. <Wes Ariza - Last Filed: 02/16/18 15:18> Physical Exam Vital signs: Vital Signs 02/15/18 16:00 02/15/18 20:00 02/15/18 20:15 Temperature 98.0 F 97.9 F Pulse Rate 116 H 110 H Respiratory Rate 14 18 Blood Pressure 90/52 L 85/49 L 88/52 L Pulse Oximetry 94 L 97 02/15/18 20:40 02/15/18 21:10 02/15/18 21:25 Temperature Pulse Rate 86 Respiratory Rate 24 Blood Pressure 87/53 L 94/55 L Pulse Oximetry 94 L 94 L 02/15/18 22:25 02/15/18 23:00 02/16/18 00:00 Temperature 98.4 F 97.7 F Pulse Rate 86 67 92 H Respiratory Rate 20 25 H 17 Blood Pressure 97/52 L 91/64 L 97/57 L Pulse Oximetry 94 L 94 L 96 02/16/18 00:53 02/16/18 03:44 02/16/18 08:00 Temperature 98.1 F 98.8 F Pulse Rate 99 H 106 H 111 H Respiratory Rate 15 18 17 Blood Pressure 105/57 L 122/73 Pulse Oximetry 94 L 92 L 96 02/16/18 12:00 02/16/18 13:08 Temperature 98.2 F Pulse Rate 107 H Respiratory Rate 19 Blood Pressure 136/77 Pulse Oximetry 99 97 Intake & Output 02/15/18 02/16/18 02/16/18 18:59 06:59 18:59 Intake Total 120 / 120 1150 / 1150 50 / 50 Output Total 500 / 500 Balance 120 / 120 650 / 650 50 / 50 Weight 70.1 kg Intake: IV 1050 / 1050 50 / 50 D5W/1/2 NS Inj 1,000 ML @ 100 1000 / 1000 mls/hr IV.CONT .Q10H [facility] Rx#: [id number] Flexbumin 25% Inj 50 ML @ 60 50 / 50 50 / 50 mls/hr IV.SIG Q12H [facility] Rx#: [id number] Oral 120 / 120 100 / 100 Output: Urine 500 / 500 Other: # Voids 2 Date of Last Bowel Movement 02/14/18 01/16/19 02/16/18 # Bowel Movements 1 # Emeses 2 - Constitutional no acute distress - Routine HEENT Exam Head: Present: normocephalic, atraumatic - Routine Respiratory Exam Present: CTA bilaterally - Routine Cardiovascular Exam Present: RRR - Routine Abdominal Exam Present: soft, normoactive bowel sounds. Absent: tenderness, distended, rebound - Routine Skin Exam Present: intact, dry. Absent: jaundice - Routine Neurological Exam Present: alert, oriented X3 <Wes Ariza - Last Filed: 02/16/18 15:18> Vital signs: Vital Signs 02/15/18 20:00 02/15/18 20:15 02/15/18 20:40 Temperature 97.9 F Pulse Rate 110 H 86 Respiratory Rate 18 24 Blood Pressure 85/49 L 88/52 L 87/53 L Pulse Oximetry 97 94 L 02/15/18 21:10 02/15/18 21:25 02/15/18 22:25 Temperature 98.4 F Pulse Rate 86 Respiratory Rate 20 Blood Pressure 94/55 L 97/52 L Pulse Oximetry 94 L 94 L 02/15/18 23:00 02/16/18 00:00 02/16/18 00:53 Temperature 97.7 F Pulse Rate 67 92 H 99 H Respiratory Rate 25 H 17 15 Blood Pressure 91/64 L 97/57 L Pulse Oximetry 94 L 96 94 L 02/16/18 03:44 02/16/18 08:00 02/16/18 12:00 Temperature 98.1 F 98.8 F 98.2 F Pulse Rate 106 H 111 H 107 H Respiratory Rate 18 17 19 Blood Pressure 105/57 L 122/73 136/77 Pulse Oximetry 92 L 96 99 02/16/18 13:08 02/16/18 16:00 Temperature 99.1 F Pulse Rate 114 H Respiratory Rate 18 Blood Pressure 146/74 H Pulse Oximetry 97 98 Intake & Output 02/16/18 02/16/18 02/17/18 06:59 18:59 06:59 Intake Total 1150 / 1150 1430 / 1430 Output Total 500 / 500 Balance 650 / 650 1430 / 1430 Weight 70.1 kg Intake: IV 1050 / 1050 950 / 950 D5W/1/2 NS Inj 1,000 ML @ 100 1000 / 1000 900 / 900 mls/hr IV.CONT .Q10H [facility] Rx#: [id number] Flexbumin 25% Inj 50 ML @ 60 50 / 50 50 / 50 mls/hr IV.SIG Q12H [facility] Rx#: [id number] Oral 100 / 100 480 / 480 Output: Urine 500 / 500 Other: # Voids 2 3 Date of Last Bowel Movement 01/16/19 02/16/18 # Bowel Movements 1 <Alyssa iKng - Last Filed: 02/16/18 19:06> Results - Labs CBC & Chem 7: 02/16/18 04:16 02/16/18 04:16 Laboratory Results - last 24 hr 02/15/18 02/16/18 02/16/18 20:22 04:16 04:16 WBC 4.9 RBC 3.77 L Hgb 11.3 L D Hct 32.6 L MCV 86.6 MCH 30.1 MCHC 34.8 RDW 17.7 H Plt Count 105 L D MPV 7.7 Neut % (Auto) 87.8 H Lymph % (Auto) 10.4 [place] % (Auto) 1.4 Eos % (Auto) 0.4 Baso % (Auto) 0.0 Neut # (Auto) 4.3 Lymph # (Auto) 0.5 L [place] # (Auto) 0.1 Eos # (Auto) 0.0 Baso # (Auto) 0.0 WBC Differential . Differential Comment Auto diff final Sodium 135 L Potassium 3.2 L Chloride 102 Carbon Dioxide 23.5 Anion Gap 10 BUN 40 H Creatinine 1.98 H Estimated GFR 25 L POC Glucose 143 H Random Glucose 111 H Calcium 7.3 L* D Calcium Adj for Albumin 8.7 Phosphorus 3.6 Magnesium 1.6 Total Bilirubin 0.7 AST 27 ALT 18 Alkaline Phosphatase 46 Total Protein 4.8 L D Albumin 2.3 L D - Imaging Impressions Chest X-Ray 02/15/18 20:36 CONCLUSION: Lateral left lung base consolidation and possible small left pleural effusion. - Procedures IMPRESSIONS: 1. Stenosis (narrowing) in the sigmoid colon, likely extrinsic and normal mucosa, traversed with difficulty . 2. Dilated proximal part of the colon and filled with air and stool, decompression done. RECOMMENDATIONS: Monitor clinically and if symptoms recur will need surgical segmental resection. Liquid diet for now Examine rest of the colon after 4 weeks RECALL: Return 1 month Colonoscopy <Amawi,Khawla - Last Filed: 02/16/18 15:18> - Labs CBC & Chem 7: 02/16/18 04:16 02/16/18 04:16 Laboratory Results - last 24 hr 02/15/18 02/16/18 02/16/18 20:22 04:16 04:16 WBC 4.9 RBC 3.77 L Hgb 11.3 L D Hct 32.6 L MCV 86.6 MCH 30.1 MCHC 34.8 RDW 17.7 H Plt Count 105 L D MPV 7.7 Neut % (Auto) 87.8 H Lymph % (Auto) 10.4 [place] % (Auto) 1.4 Eos % (Auto) 0.4 Baso % (Auto) 0.0 Neut # (Auto) 4.3 Lymph # (Auto) 0.5 L [place] # (Auto) 0.1 Eos # (Auto) 0.0 Baso # (Auto) 0.0 WBC Differential . Differential Comment Auto diff final Sodium 135 L Potassium 3.2 L Chloride 102 Carbon Dioxide 23.5 Anion Gap 10 BUN 40 H Creatinine 1.98 H Estimated GFR 25 L POC Glucose 143 H Random Glucose 111 H Calcium 7.3 L* D Calcium Adj for Albumin 8.7 Phosphorus 3.6 Magnesium 1.6 Total Bilirubin 0.7 AST 27 ALT 18 Alkaline Phosphatase 46 Total Protein 4.8 L D Albumin 2.3 L D - Imaging Impressions Chest X-Ray 02/15/18 20:36 CONCLUSION: Lateral left lung base consolidation and possible small left pleural effusion. <Alyssa King - Last Filed: 02/16/18 19:06> Assessment and Plan - Plan Assessment Unintentional weight loss with CT findings concerning for obstruction and proximal sigmoid colon Feeling better s/p colonoscopy, tolerating diet, having BMs, no N/V Discussed with pt doing EGD/colonoscopy tomorrow, but pt is declining colonoscopy, states "she will not be able to tolerate prep" She will think about doing only EGD S/P Colonoscopy on 02/14/18 1. Stenosis (narrowing) in the sigmoid colon, likely extrinsic and normal mucosa, traversed with difficulty . 2. Dilated proximal part of the colon and filled with air and stool, decompression done. patient is unsure of how much weight she has been losing but states that it is noticeable to the fact that people around her have been telling her. GI symptoms included nausea and vomiting that have been intermittent since October. CT abdomen/pelvis with IV contrast done in the ER significant for dilatation of the colon and to a lesser degree small bowel concerning for ileus or obstruction. There is a questionable transition point in the proximal sigmoid colon. They are recommending evaluation with direct inspection. Also noted on the exam is a mild hiatal hernia, and if his evenness changes in the lungs, hepatic steatosis, possible small gallstones, calcifications at the posterior aspect of the uncinate process which may be from chronic pancreatitis otherwise the pancreas appears normal, and renal cyst. Patient had an NG tube placed to low intermittent wall suction while in the emergency department, but was dislodged after a sneeze - Anemia/drop in hgb- 11.3, was 14.9 yesterday. ? GI bleed. Pt is declining Colonoscopy but will thing about EGD COPD/chronic kidney diseaseper primary team Plan clears Discussed with pt doing EGD/colonoscopy tomorrow, but pt is declining colonoscopy, states "she will not be able to tolerate prep" She will think about doing only EGD Obtain consents for EGD if pt agreeing NPO mn KUB in the am Reinsert NG if N/V recurred, pt doing better now Bowel regimen Colonoscopy in one month Consider surgical evaluation if no improvement Antiemetics PRN Further recommendations to follow This patient has been seen and examined by myself and Dr. King and this note is written on her behalf <Wes Ariza - Last Filed: 02/16/18 15:18> - Attending Attestation seen, examined ideally she should have egd/colon tomorrow if agrees and able to tolerate prep <Alyssa King - Last Filed: 02/16/18 19:06>
[2018-02-16] MEDS ORDERED: Heparin - SQ 10,000 UNITS/ML Vial SQ SCH (21:00)
[2018-02-17] MEDS: Sod Chloride 0.9% Inj 1,000 ML IV.CONT SCH ×3 (01:20→20:49)
[2018-02-17 07:34] LABS: Calcium 8.3 mg/dL (8.5-10.1); Carbon Dioxide 28.6 meq/L (21.0-32.0); Potassium 3.1 meq/L (3.5-5.1)
[2018-02-17] MEDS: Acetaminophen 325 MG Tablet PO PRN (08:56)
[2018-02-17] MEDS: Albumin Human 25% Inj 50 ML IV.SIG SCH ×2 (08:56→20:47)
[2018-02-17] MEDS: Budesonide-Formoterol 160/4.5 MCG 6 GM Inhaler INH SCH ×2 (08:58→20:52)
--- NOTE | 2018-02-17 10:18 | GIPROC ---
[facility] [address] [facility]. [facility], [address] EGD PROCEDURE REPORT EXAM DATE: 02/17/2018 PATIENT NAME: Sabina Malhotra MR #: [id number] BIRTHDATE: 1950 ATTENDING: Hank Mcneill MD ORDER #: [id number] MEDICAL CODING MANAGER: Ginger Hernandez Pena, Gabriela, and Alysia Sesay STATUS: inpatient INDICATIONS: The patient is a 67 yr old female here for an EGD due to dyspepsia PROCEDURE PERFORMED: EGD, diagnostic MEDICATIONS: Per Anesthesia and None. TOPICAL ANESTHETIC: none CONSENT: The patient understands the risks and benefits of the procedure and understands that these risks include, but are not limited to: sedation, allergic reaction, infection, perforation and/or bleeding. Alternative means of evaluation and treatment include, among others: physical exam, x-rays, and/or surgical intervention. The patient elects to proceed with this endoscopic procedure. medical equipment was checked for proper function. Hand hygiene and appropriate measures for infection prevention was taken. After the risks, benefits and alternatives of the procedure were thoroughly explained, Informed consent was verified, confirmed and timeout was successfully executed by the treatment team. The patient was anesthetized with topical anesthesia and the Pentax EG-[id number] endoscope was introduced through the mouth and advanced to the second portion of the duodenum. Retroflexion was performed and was normal The gastroscope was then slowly withdrawn and removed. ESOPHAGUS: The esophagus was otherwise normal. A medium sized hiatal hernia was noted. STOMACH: The mucosa of the stomach appeared normal. DUODENUM: The duodenal mucosa appeared normal in the duodenal bulb and 2nd part duodenum. ADVERSE EVENTS: There were no complications. IMPRESSIONS: 1. The esophagus was otherwise normal 2. Medium sized hiatal hernia 3. The mucosa of the stomach appeared normal 4. Normal duodenal mucosa in the duodenal bulb and 2nd part duodenum 5. Retroflexion was performed and was normal RECOMMENDATIONS: Avoid NSAIDS PATIENT CONDITION: stable DISPOSITION: Observation REPEAT EXAM: NONE Hank Mcneill MD eSigned: Hank Mcneill MD 02/17/2018 10:18 AM cc:
[2018-02-17] MEDS ORDERED: Chlorhexidine Gluconate 2% 1 Pack (2 Cloths) TOPICAL ONE (12:45)
[2018-02-17] MEDS ORDERED: Sodium Chlor 0.9% Inj 500 ML IV.CONT ONE (12:45)
[2018-02-17] MEDS ORDERED: Metoprolol Tartrate 25 MG Tablet PO ONE (12:45)
--- NOTE | 2018-02-17 13:49 | XR ---
EXAM DATE: 02/17/2018 1:42 PM EST AGE/SEX: 67 years / Female INDICATIONS: Abdominal distention. CLINICAL DATA: This is the patient's initial encounter. Patient reports that signs and symptoms have been present for 1 day and indicates a pain score of 7/10. MEDICAL/SURGICAL HISTORY: None. None. COMPARISON: [facility] [place]OM[place] & PELVIS W CONTRAST, 02/12/2018. . FINDINGS: AP supine views of the abdomen show a few small bowel loops in the midabdomen with mild air distentio n. There is scattered air identified in the colon. No pneumoperitoneum. Suggestion of a left basilar consolidation/effusion. CONCLUSION: 1. Minimal air distention of central small bowel loops in a nonobstructive pattern suggesting a mild hypodynamic ileus. No pneumoperitoneum. 2. Left basilar consolidation/effusion. Electronically signed by: Ky Monroy MD Board Certified Radiologist 02/17/2018 1:47 PM EST
--- NOTE | 2018-02-17 14:04 | P.PNIM ---
Subjective Interval history: Nursing denies any acute changes overnight. Patient s/P EGD. Denies any abdominal pain, nausea. Physical Exam Vital signs: Vital Signs 02/16/18 16:00 02/16/18 20:00 02/17/18 00:00 Temperature 99.1 F 98.9 F 98.3 F Pulse Rate 114 H 111 H 101 H Respiratory Rate 18 17 18 Blood Pressure 146/74 H 131/75 132/70 Pulse Oximetry 98 93 L 97 02/17/18 03:52 02/17/18 04:00 02/17/18 08:00 Temperature 98.4 F 99.5 F Pulse Rate 104 H 107 H 102 H Respiratory Rate 22 18 19 Blood Pressure 162/80 H 155/71 H Pulse Oximetry 98 98 02/17/18 09:19 02/17/18 10:36 Temperature 98.4 F Pulse Rate 103 H Respiratory Rate 18 Blood Pressure 118/59 L Pulse Oximetry 95 Intake & Output 02/16/18 02/17/18 02/17/18 18:59 06:59 18:59 Intake Total 1430 / 1430 2926 / 2926 348 / 348 Output Total 1110 / 1110 Balance 1430 / 1430 1816 / 1816 348 / 348 Weight 72.4 kg Intake: IV 950 / 950 2866 / 2866 248 / 248 D5W/1/2 NS Inj 1,000 ML @ 100 900 / 900 mls/hr IV.CONT .Q10H [facility] Rx#: [id number] NS Inj 1,000 ML @ 84 mls/hr IV. 1802 / 1802 198 / 198 CONT .[id number] [facility] Rx#:[id number] Flexbumin 25% Inj 50 ML @ 60 50 / 50 50 / 50 50 / 50 mls/hr IV.SIG Q12H [facility] Rx#: [id number] KCl Inj 20 MEQ Magnesium 1014 / 1014 Sulfate Inj 2 GM In NS Inj 1, 000 ML @ 500 mls/hr IV.SIG ONCE ONE Rx#:[id number] Oral 480 / 480 60 / 60 Anesthesia Amount 100 / 100 Output: Urine 1110 / 1110 Other: # Voids 3 Date of Last Bowel Movement 02/16/18 01/17/19 # Bowel Movements 1 6 Narrative: Clear lungs bilaterally, unlabored breathing Heart sounds regular rate and rhythm Abdomen soft, nontender, nondistended Lying in bed, awake and alert, no acute distress No change since yesterday Results - Labs CBC & Chem 7: 02/16/18 04:16 02/17/18 06:42 Laboratory Results - last 24 hr 02/17/18 06:42 Sodium 142 Potassium 3.1 L Chloride 107 Carbon Dioxide 28.6 Anion Gap 6 BUN 23 H Creatinine 1.22 H Estimated GFR 44 L Random Glucose 98 Calcium 8.3 L D - Imaging Impressions Abdomen X-Ray 02/17/18 06:00 CONCLUSION: 1. Minimal air distention of central small bowel loops in a nonobstructive pattern suggesting a mild hypodynamic ileus. No pneumoperitoneum. 2. Left basilar consolidation/effusion. - Procedures IMPRESSIONS: 1. Stenosis (narrowing) in the sigmoid colon, likely extrinsic and normal mucosa, traversed with difficulty . 2. Dilated proximal part of the colon and filled with air and stool, decompression done. RECOMMENDATIONS: Monitor clinically and if symptoms recur will need surgical segmental resection. Liquid diet for now Examine rest of the colon after 4 weeks RECALL: Return 1 month Colonoscopy Assessment and Plan - Plan This patient is a 67-year-old female admitted with nausea, vomiting and abdominal pain. Admitted with possible small bowel obstruction based upon CT findings. Started on IV fluids underwent colonoscopy showing some colonic narrowing, no decompression. Abd pain/N/V -CT abd showing dilatation of colon possible small SBO, possible transition point Status post colonoscopy showing sigmoid stenosis, underwent dilatation decompression -resolved, tolerating liquids -egd wnl - monitor overnight, advance diet per GI Hypokalemia HypoMg -still replacing -starting orals MARSHA -improving w/ IVFs Hypertension -Catapres as needed COPD -stable Discharge Planning: pending improvement in renal function and GI stability
[2018-02-17] MEDS ORDERED: Potassium Chloride Inj 20 MEQ, Magnesium Sulfate Inj 2 GM in Dextrose 5%/NaCl 0.45% Inj... IV.SIG ONE (16:07)
[2018-02-17] MEDS: Magnesium Oxide 400 MG Tablet PO SCH (18:30)
[2018-02-18] MEDS: Sod Chloride 0.9% Inj 1,000 ML IV.CONT SCH ×3 (04:19→22:11)
[2018-02-18 07:32] LABS: Carbon Dioxide 27.5 meq/L (21.0-32.0); Potassium 3.4 meq/L (3.5-5.1)
--- NOTE | 2018-02-18 09:13 | P.DS ---
Date of admission: 02/13/18 01:00 Primary care physician: UNKNOWN Brief History from admission: This patient is a 67-year-old female with a diagnosis of COPD and chronic kidney disease. The patient presents to the emergency room with complaints of nausea, vomiting. She has been having abdominal cramps and on and off constipation over the past few months. She has never had a colonoscopy in the past. She does report unintentional weight loss over the past year. She is not sure how much weight she has lost. Because of her symptoms she came into the emergency department for evaluation. She denies any fevers or chills, no chest pain, shortness of breath. Past medical history COPD, chronic kidney disease Surgical history tonsillectomy Social history the patient admits to an extensive tobacco smoking history, quit 6 years ago, drinks alcohol socially, no history of drug use Family history no family history of colon cancer or any other types of cancer. DS: Medications - Discharge Medications Prescriptions: albuterol sulfate [ProAir HFA] 1 puff INHALATION Q4-6H PRN #1 inhaler PRN Reason: Shortness Of Breath Or Wheezing budesonide-formoterol [Symbicort] 2 puff INH BID #1 inhaler DS: Summary Hospital Course: 1. Intractable nausea and vomiting secondary to colonic stenosis 2. Acute kidney injury secondary to dehydration secondary to #1. This patient is a 67-year-old female with a diagnosis of CKD and COPD. The patient presented to emerge from with complaints of nausea and vomiting. CT scan of the abdomen pelvis showed findings concerning with small bowel obstruction. The patient was admitted and kept n.p.o. GI evaluated the patient and the patient subsequently underwent EGD and colonoscopy. EGD did not show any significant findings. Colonoscopy showed stenosis in the sigmoid colon. The patient underwent dilation and decompression. She was subsequently started on a p.o. diet and her symptoms resolved. Patient is now tolerating diet without any complaints of nausea or vomiting. She is now having bowel movements. She can follow-up with GI in the next 1 month. She should also follow-up with a primary care doctor next 1-2 weeks. Patient was also found to be in acute kidney injury when she was first admitted with a serum creatinine elevated at 1.4. After the initiation of IV fluids the patient's serum creatinine had improved. 3. COPD Continue Symbicort, can continue albuterol. - Time Spent with Patient Total time spent providing and/or coordinating discharge services: Greater than 30 minutes Exam Vital signs: Vital Signs 02/17/18 09:19 02/17/18 10:36 02/17/18 16:00 Temperature 98.4 F 98.8 F Pulse Rate 103 H 100 H Respiratory Rate 18 18 Blood Pressure 118/59 L 141/68 H Pulse Oximetry 95 96 02/17/18 19:37 02/17/18 20:00 02/17/18 23:29 Temperature 99.4 F 99.8 F H Pulse Rate 109 H 113 H Respiratory Rate 17 19 Blood Pressure 156/82 H 163/84 H Pulse Oximetry 95 94 L 95 02/18/18 04:00 02/18/18 08:00 Temperature 97.8 F 99.4 F Pulse Rate 96 H 93 H Respiratory Rate 17 18 Blood Pressure 128/67 150/79 H Pulse Oximetry 96 96 Intake & Output 02/17/18 02/18/18 02/18/18 18:59 06:59 18:59 Intake Total 548 / 548 2104 / 2104 Output Total 1000 / 1000 1050 / 1050 Balance -452 / -452 1054 / 1054 Weight 67.9 kg Intake: IV 448 / 448 1864 / 1864 NS Inj 1,000 ML @ 84 mls/hr IV. 398 / 398 800 / 800 CONT .[id number] [facility] Rx#:[id number] Flexbumin 25% Inj 50 ML @ 60 50 / 50 50 / 50 mls/hr IV.SIG Q12H [facility] Rx#: [id number] KCl Inj 20 MEQ Magnesium 1014 / 1014 Sulfate Inj 2 GM In D5W/1/2 NS Inj 1,000 ML @ 500 mls/hr IV. SIG ONCE ONE Rx#:[id number] Oral 240 / 240 Anesthesia Amount 100 / 100 Output: Urine 1000 / 1000 1050 / 1050 Other: Date of Last Bowel Movement 02/17/18 # Bowel Movements 1 Narrative: General patient in no acute distress HEENT extraocular movements are intact, clear oropharyngeal mucosa, no JVD Cardiovascular S1-S2 audible, RRR, no murmurs rubs or gallops Respiratory clear to auscultation bilaterally Abdomen soft, nontender, nondistended, normal bowel sounds Extremities no edema 2+ distal pulses in bilateral upper and lower extremities Neuro cranial nerves II through XII intact Results Procedures completed during hospitalization: IMPRESSIONS: 1. Stenosis (narrowing) in the sigmoid colon, likely extrinsic and normal mucosa, traversed with difficulty . 2. Dilated proximal part of the colon and filled with air and stool, decompression done. RECOMMENDATIONS: Monitor clinically and if symptoms recur will need surgical segmental resection. Liquid diet for now Examine rest of the colon after 4 weeks RECALL: Return 1 month Colonoscopy Labs on day of discharge: Labs from last 24 hours 02/18/18 04:00 Sodium 139 Potassium 3.4 L Chloride 103 Carbon Dioxide 27.5 Anion Gap 9 BUN 14 Creatinine 0.82 Estimated GFR 70 L Random Glucose 87 Calcium 8.0 L - Impressions ITS Impressions Abdomen/Pelvis CT 02/12/18 21:55 CONCLUSION: 1. Dilatation of the colon and to a lesser degree small bowel concerning for ileus or obstruction. There is a questionable transition point in the proximal sigmoid colon. This area could be further evaluated with direct inspection. 2. Mild hiatal hernia. 3. Emphysematous change in the lungs. 4. Hepatic steatosis. 5. Possible small gallstones. 6. Calcifications at the posterior aspect of the uncinate process which may be from chronic pancreatitis. Otherwise the pancreas appears normal. 7. Renal cysts. Chest X-Ray 02/15/18 20:36 CONCLUSION: Lateral left lung base consolidation and possible small left pleural effusion. Abdomen X-Ray 02/17/18 06:00 CONCLUSION: 1. Minimal air distention of central small bowel loops in a nonobstructive pattern suggesting a mild hypodynamic ileus. No pneumoperitoneum. 2. Left basilar consolidation/effusion. Discharge Plan - Discharge Disposition Patient Disposition: Discharge Home - Discharge Condition Condition: Stable - Discharge Order Discharge Orders: Discharge Order (Routine); Ordered 02/18/18 Ordered By: Juan Jose Coy - Discharge Details Discharge Comment: Patient awaiting PT eval, wait for eval prior to discharge. - Physicians Team Primary Care Provider: UNKNOWN, Attending Provider: Juan Jose Coy Other Providers: Hank Mcneill MD ; Divina Murcia
[2018-02-18] MEDS: Albumin Human 25% Inj 50 ML IV.SIG SCH ×2 (09:24→20:59)
[2018-02-18] MEDS: Magnesium Oxide 400 MG Tablet PO SCH (09:24)
[2018-02-18] MEDS: Budesonide-Formoterol 160/4.5 MCG 6 GM Inhaler INH SCH ×2 (09:25→21:00)
[2018-02-18] MEDS: Acetaminophen 325 MG Tablet PO PRN (12:46)
--- NOTE | 2018-02-18 15:42 | P.PNGI ---
Subjective Interval history: Patient laying supine in bed Denies abdominal pain nausea or vomiting Post EGD <Alaina Villalba - Last Filed: 02/18/18 15:34> Physical Exam Vital signs: Vital Signs 02/17/18 16:00 02/17/18 19:37 02/17/18 20:00 Temperature 98.8 F 99.4 F Pulse Rate 100 H 109 H Respiratory Rate 18 17 Blood Pressure 141/68 H 156/82 H Pulse Oximetry 96 95 94 L 02/17/18 23:29 02/18/18 04:00 02/18/18 08:00 Temperature 99.8 F H 97.8 F 99.4 F Pulse Rate 113 H 96 H 93 H Respiratory Rate 19 17 18 Blood Pressure 163/84 H 128/67 150/79 H Pulse Oximetry 95 96 96 02/18/18 10:09 02/18/18 12:00 Temperature 100.3 F H Pulse Rate 104 H Respiratory Rate 18 Blood Pressure 164/85 H Pulse Oximetry 91 L 91 L Intake & Output 02/17/18 02/18/18 02/18/18 18:59 06:59 18:59 Intake Total 548 / 548 2104 / 2104 1000 / 1000 Output Total 1000 / 1000 1050 / 1050 Balance -452 / -452 1054 / 1054 1000 / 1000 Weight 67.9 kg Intake: IV 448 / 448 1864 / 1864 1000 / 1000 NS Inj 1,000 ML @ 84 mls/hr IV. 398 / 398 800 / 800 1000 / 1000 CONT .[id number] [facility] Rx#:[id number] Flexbumin 25% Inj 50 ML @ 60 50 / 50 50 / 50 mls/hr IV.SIG Q12H [facility] Rx#: [id number] KCl Inj 20 MEQ Magnesium 1014 / 1014 Sulfate Inj 2 GM In D5W/1/2 NS Inj 1,000 ML @ 500 mls/hr IV. SIG ONCE ONE Rx#:[id number] Oral 240 / 240 Anesthesia Amount 100 / 100 Output: Urine 1000 / 1000 1050 / 1050 Other: Date of Last Bowel Movement 02/17/18 02/17/18 02/17/18 # Bowel Movements 1 - Constitutional no acute distress - Routine HEENT Exam Head: Present: normocephalic - Routine Respiratory Exam Present: CTA bilaterally. Absent: accessory muscle use - Routine Cardiovascular Exam Present: RRR - Routine Abdominal Exam Present: soft, normoactive bowel sounds. Absent: tenderness, distended - Routine Extremities Exam Absent: edema - Routine Skin Exam Present: dry, warm - Routine Neurological Exam Present: alert, oriented X3 - Routine Psychiatric Exam Present: normal affect, cooperative <Alaina Villalba - Last Filed: 02/18/18 15:34> Vital signs: Vital Signs 02/17/18 19:37 02/17/18 20:00 02/17/18 23:29 Temperature 99.4 F 99.8 F H Pulse Rate 109 H 113 H Respiratory Rate 17 19 Blood Pressure 156/82 H 163/84 H Pulse Oximetry 95 94 L 95 02/18/18 04:00 02/18/18 08:00 02/18/18 10:09 Temperature 97.8 F 99.4 F Pulse Rate 96 H 93 H Respiratory Rate 17 18 Blood Pressure 128/67 150/79 H Pulse Oximetry 96 96 91 L 02/18/18 12:00 Temperature 100.3 F H Pulse Rate 104 H Respiratory Rate 18 Blood Pressure 164/85 H Pulse Oximetry 91 L Intake & Output 02/17/18 02/18/18 02/18/18 18:59 06:59 18:59 Intake Total 548 / 548 2104 / 2104 1000 / 1000 Output Total 1000 / 1000 1050 / 1050 Balance -452 / -452 1054 / 1054 1000 / 1000 Weight 67.9 kg Intake: IV 448 / 448 1864 / 1864 1000 / 1000 NS Inj 1,000 ML @ 84 mls/hr IV. 398 / 398 800 / 800 1000 / 1000 CONT .[id number] [facility] Rx#:[id number] Flexbumin 25% Inj 50 ML @ 60 50 / 50 50 / 50 mls/hr IV.SIG Q12H [facility] Rx#: [id number] KCl Inj 20 MEQ Magnesium 1014 / 1014 Sulfate Inj 2 GM In D5W/1/2 NS Inj 1,000 ML @ 500 mls/hr IV. SIG ONCE ONE Rx#:[id number] Oral 240 / 240 Anesthesia Amount 100 / 100 Output: Urine 1000 / 1000 1050 / 1050 Other: Date of Last Bowel Movement 02/17/18 02/17/18 02/17/18 # Bowel Movements 1 <Hank Mcneill - Last Filed: 02/18/18 16:03> Results - Labs CBC & Chem 7: 02/16/18 04:16 02/18/18 04:00 Laboratory Results - last 24 hr 02/18/18 04:00 Sodium 139 Potassium 3.4 L Chloride 103 Carbon Dioxide 27.5 Anion Gap 9 BUN 14 Creatinine 0.82 Estimated GFR 70 L Random Glucose 87 Calcium 8.0 L - Procedures IMPRESSIONS: 1. Stenosis (narrowing) in the sigmoid colon, likely extrinsic and normal mucosa, traversed with difficulty . 2. Dilated proximal part of the colon and filled with air and stool, decompression done. RECOMMENDATIONS: Monitor clinically and if symptoms recur will need surgical segmental resection. Liquid diet for now Examine rest of the colon after 4 weeks RECALL: Return 1 month Colonoscopy <Alaina Villalba - Last Filed: 02/18/18 15:34> - Labs CBC & Chem 7: 02/16/18 04:16 02/18/18 04:00 Laboratory Results - last 24 hr 02/18/18 04:00 Sodium 139 Potassium 3.4 L Chloride 103 Carbon Dioxide 27.5 Anion Gap 9 BUN 14 Creatinine 0.82 Estimated GFR 70 L Random Glucose 87 Calcium 8.0 L <Hank Mcneill - Last Filed: 02/18/18 16:03> Assessment and Plan - Plan Assessment Unintentional weight loss with CT findings concerning for obstruction and proximal sigmoid colon Feeling better s/p colonoscopy, tolerating diet, having BMs, no N/V Discussed with pt doing EGD/colonoscopy tomorrow, but pt is declining colonoscopy, states "she will not be able to tolerate prep" She will think about doing only EGD S/P Colonoscopy on 02/14/18 1. Stenosis (narrowing) in the sigmoid colon, likely extrinsic and normal mucosa, traversed with difficulty . 2. Dilated proximal part of the colon and filled with air and stool, decompression done. patient is unsure of how much weight she has been losing but states that it is noticeable to the fact that people around her have been telling her. GI symptoms included nausea and vomiting that have been intermittent since October. CT abdomen/pelvis with IV contrast done in the ER significant for dilatation of the colon and to a lesser degree small bowel concerning for ileus or obstruction. There is a questionable transition point in the proximal sigmoid colon. They are recommending evaluation with direct inspection. Also noted on the exam is a mild hiatal hernia, and if his evenness changes in the lungs, hepatic steatosis, possible small gallstones, calcifications at the posterior aspect of the uncinate process which may be from chronic pancreatitis otherwise the pancreas appears normal, and renal cyst. Patient had an NG tube placed to low intermittent wall suction while in the emergency department, but was dislodged after a sneeze - Anemia/drop in hgb- 11.3, was 14.9 yesterday. ? GI bleed. Pt is declining Colonoscopy but will thing about EGD COPD/chronic kidney diseaseper primary team 02/18/2018 Patient states feeling better, denies nausea vomiting or abdominal pain 02/17/2018 EGD revealed the following: The esophagus was otherwise normal Medium sized hiatal hernia The mucosa of the stomach appeared normal Normal duodenal mucosa in the duodenal bulb and 2nd part duodenum Retroflexion was performed and was normal 02/16/2017 WBC 4.9 hemoglobin 11.3 hematocrit 32.6 Plan -Diet as tolerated -Bowel regimen -Avoid NSAIDs -Colonoscopy in 1 month- as per procedure report above -Patient to follow-up with GI post discharge -Supportive care -GI will sign off at this time, please notify for any further assistance This patient has been seen by myself and Dr. Mcneill and this note is written on his behalf - Attending Attestation Dr. Mcneill <Alaina Villalba - Last Filed: 02/18/18 15:34> - Attending Attestation Agree with above assessment and plan. Please notify us if needed again. <Hank Mcneill - Last Filed: 02/18/18 16:03>
--- NOTE | 2018-02-18 16:27 | XR ---
EXAM DATE: 02/18/2018 4:18 PM EST AGE/SEX: 67 years / Female INDICATIONS: Cough. CLINICAL DATA: This is the patient's initial encounter. Patient reports that signs and symptoms have been present for 3 days and indicates a pain score of 0/10. MEDICAL/SURGICAL HISTORY: Chronic obstructive pulmonary disease. None. COMPARISON: [facility] [place], CHEST 1V SINGLE AP, 02/15/2018. . FINDINGS: Patchy consolidation of the left mid and lower lung is modestly worse in the interim. There is also s ome developing parenchymal opacification laterally of the right mid lung. Findings are superimposed o n chronic appearing mild interstitial opacities and apical predominant pleural thickening/scarring. CONCLUSION: Worsening bilateral airspace disease as described. Electronically signed by: Jonathan Cotter MD Board Certified Radiologist 02/18/2018 4:26 PM EST
[2018-02-18] MEDS: Azithromycin Inj 250 MG in Sodium Chlor 0.9% Inj 250 ML IV.SIG SCH (16:51)
[2018-02-18 20:58] LABS: Bilirubin,Urine Negative (Negative); Clarity,Urine Clear (Clear); Color,Urine Yellow (Yellw/Straw); Glucose,Urine (UA) Negative (Negative); Hyaline Casts,Urine 1 /lpf (0-3); Leukocyte Esterase,Urine Negative (Negative); Mucus,Urine Few /lpf (Occasional); Nitrite,Urine Negative (Negative); Specific Gravity,Urine 1.019 (1.002-1.035); Squamous Epithelial Cell,Urine <1 /hpf (0-5)
[2018-02-18 21:00] LABS: Urobilinogen,Urine 0.2 mg/dL (Less than 2)
[2018-02-19] MEDS: Sod Chloride 0.9% Inj 1,000 ML IV.CONT SCH ×2 (00:29→13:47)
[2018-02-19] MEDS: Budesonide-Formoterol 160/4.5 MCG 6 GM Inhaler INH SCH ×2 (08:00→20:56)
[2018-02-19] MEDS: Magnesium Oxide 400 MG Tablet PO SCH (08:00)
[2018-02-19] MEDS: Albumin Human 25% Inj 50 ML IV.SIG SCH (08:01)
--- NOTE | 2018-02-19 09:05 | P.PNIM ---
Subjective Interval history: Patient sitting upright in bed. Says she feels much better than yesterday. Physical Exam Vital signs: Vital Signs 02/18/18 10:09 02/18/18 12:00 02/18/18 16:00 Temperature 100.3 F H 98.1 F Pulse Rate 104 H 96 H Respiratory Rate 18 18 Blood Pressure 164/85 H 122/65 Pulse Oximetry 91 L 91 L 97 02/18/18 16:11 02/18/18 20:00 02/19/18 00:00 Temperature 98.5 F 99.2 F Pulse Rate 65 103 H 100 H Respiratory Rate 16 18 18 Blood Pressure 133/71 151/88 H Pulse Oximetry 94 L 94 L 02/19/18 01:12 02/19/18 04:00 Temperature 98.4 F Pulse Rate 98 H 93 H Respiratory Rate 16 18 Blood Pressure 155/76 H Pulse Oximetry 96 Intake & Output 02/18/18 02/19/18 02/19/18 18:59 06:59 18:59 Intake Total 1150 / 1150 1060 / 1060 Output Total 900 / 900 Balance 250 / 250 1060 / 1060 Weight 68.4 kg Intake: IV 1150 / 1150 700 / 700 NS Inj 1,000 ML @ 84 mls/hr IV. 1000 / 1000 400 / 400 CONT .[id number] [facility] Rx#:[id number] Flexbumin 25% Inj 50 ML @ 60 50 / 50 50 / 50 mls/hr IV.SIG Q12H [facility] Rx#: [id number] Azithromycin Inj 250 MG In NS 250 / 250 Inj 250 ML @ 250 mls/hr IV.SIG Q24H [facility] Rx#:[id number] Rocephin Inj 1,000 MG In NS Inj 100 / 100 100 ML @ 200 mls/hr IV.SIG Q24H [facility] Rx#:[id number] Oral 360 / 360 Output: Urine 900 / 900 Other: # Voids 5 Date of Last Bowel Movement 02/17/18 02/17/18 # Bowel Movements 1 3 Narrative: General patient in no acute distress HEENT extraocular movements are intact, clear oropharyngeal mucosa, no JVD Cardiovascular S1-S2 audible, RRR, no murmurs rubs or gallops Respiratory rhonchi left lower lobe. Abdomen soft, nontender, nondistended, normal bowel sounds Extremities no edema 2+ distal pulses in bilateral upper and lower extremities Neuro cranial nerves II through XII intact Results - Labs CBC & Chem 7: 02/16/18 04:16 02/18/18 04:00 Laboratory Results - last 24 hr 02/18/18 18:40 Urine Color Yellow Urine Clarity Clear Urine pH 6.0 Ur Specific [place] 1.019 Urine Protein 30 H Urine Glucose (UA) Negative Urine Ketones Negative Urine Occult Blood Negative Urine Nitrate Negative Urine Bilirubin Negative Urine Urobilinogen 0.2 Ur Leukocyte Esterase Negative Urine RBC 1 Urine WBC 1 Ur Squamous Epith Cells <1 Hyaline Casts 1 Urine Mucus Few H Micro UA Comment Culture not ind Ur Microscopic Review Not Reportable Urine Culture Comments Culture not ind - Imaging Impressions Chest X-Ray 02/18/18 00:00 CONCLUSION: Worsening bilateral airspace disease as described. - Procedures IMPRESSIONS: 1. Stenosis (narrowing) in the sigmoid colon, likely extrinsic and normal mucosa, traversed with difficulty . 2. Dilated proximal part of the colon and filled with air and stool, decompression done. RECOMMENDATIONS: Monitor clinically and if symptoms recur will need surgical segmental resection. Liquid diet for now Examine rest of the colon after 4 weeks RECALL: Return 1 month Colonoscopy Assessment and Plan - Plan 1. Intractable nausea and vomiting secondary to colonic stenosis 2. Acute kidney injury secondary to dehydration secondary to #1. This patient is a 67-year-old female with a diagnosis of CKD and COPD. The patient presented to emerge from with complaints of nausea and vomiting. CT scan of the abdomen pelvis showed findings concerning with small bowel obstruction. The patient was admitted and kept n.p.o. GI evaluated the patient and the patient subsequently underwent EGD and colonoscopy. EGD did not show any significant findings. Colonoscopy showed stenosis in the sigmoid colon. The patient underwent dilation and decompression. She was subsequently started on a p.o. diet and her symptoms resolved. Patient is now tolerating diet without any complaints of nausea or vomiting. She is now having bowel movements. She can follow-up with GI in the next 1 month. She should also follow-up with a primary care doctor next 1-2 weeks. Patient was also found to be in acute kidney injury when she was first admitted with a serum creatinine elevated at 1.4. After the initiation of IV fluids the patient's serum creatinine had improved. 3. Left lower lobe CAPNA 4. COPD Patient presented with a infiltrate in the left lower lobe on cxr. Initially patient did not have any significant symptoms. On my evaluation yesterday patient was found to be febrile and was having a cough. Repeat cxr showed worsening of the infiltrate. She was started on IV antibiotics, she says she feels much better today. She has now been afebrile for 24 hrs. Patient will receive IV antibiotics for today then be discharged on 5 days of levaquin. [facility] Continue Symbicort, can continue albuterol. Scripts for medications were given to the patient prior to her discharge. PT evaluated the patient yesterday and will be discharged with a front wheel walker.
[2018-02-19] MEDS: Azithromycin Inj 250 MG in Sodium Chlor 0.9% Inj 250 ML IV.SIG SCH (14:30)
[2018-02-20] MEDS: Sod Chloride 0.9% Inj 1,000 ML IV.CONT SCH (04:31)
[2018-02-20] MEDS: Budesonide-Formoterol 160/4.5 MCG 6 GM Inhaler INH SCH ×2 (08:29→21:18)
[2018-02-20] MEDS: Magnesium Oxide 400 MG Tablet PO SCH (08:29)
--- NOTE | 2018-02-20 09:28 | P.PNIM ---
Subjective Interval history: Patient has a mild cough. Improving. Physical Exam Vital signs: Vital Signs 02/19/18 12:00 02/19/18 14:13 02/19/18 16:00 Temperature 98.3 F 97.9 F Pulse Rate 102 H 92 H 101 H Respiratory Rate 18 16 20 Blood Pressure 154/85 H 150/72 H Pulse Oximetry 95 94 L 02/19/18 20:00 02/19/18 20:29 02/20/18 00:00 Temperature 98.0 F 97.7 F Pulse Rate 101 H 96 H 95 H Respiratory Rate 20 18 17 Blood Pressure 172/70 H 136/71 Pulse Oximetry 91 L 96 93 L 02/20/18 04:00 Temperature 98.2 F Pulse Rate 86 Respiratory Rate 17 Blood Pressure 149/77 H Pulse Oximetry 96 Intake & Output 02/19/18 02/20/18 02/20/18 18:59 06:59 18:59 Intake Total 1830 / 1830 1480 / 1480 Output Total 800 / 800 650 / 650 Balance 1030 / 1030 830 / 830 Weight 70 kg Intake: IV 1350 / 1350 1000 / 1000 NS Inj 1,000 ML @ 84 mls/hr IV. 1000 / 1000 1000 / 1000 CONT .[id number] [facility] Rx#:[id number] Azithromycin Inj 250 MG In NS 250 / 250 Inj 250 ML @ 250 mls/hr IV.SIG Q24H [facility] Rx#:[id number] Rocephin Inj 1,000 MG In NS Inj 100 / 100 100 ML @ 200 mls/hr IV.SIG Q24H [facility] Rx#:[id number] Oral 480 / 480 480 / 480 Output: Urine 800 / 800 650 / 650 Other: Date of Last Bowel Movement 02/17/18 02/20/18 # Bowel Movements 1 1 Narrative: General patient in no acute distress HEENT extraocular movements are intact, clear oropharyngeal mucosa, no JVD Cardiovascular S1-S2 audible, RRR, no murmurs rubs or gallops Respiratory rhonchi left lower lobe. Abdomen soft, nontender, nondistended, normal bowel sounds Extremities no edema 2+ distal pulses in bilateral upper and lower extremities Neuro cranial nerves II through XII intact Results - Labs CBC & Chem 7: 02/16/18 04:16 02/18/18 04:00 - Procedures IMPRESSIONS: 1. Stenosis (narrowing) in the sigmoid colon, likely extrinsic and normal mucosa, traversed with difficulty . 2. Dilated proximal part of the colon and filled with air and stool, decompression done. RECOMMENDATIONS: Monitor clinically and if symptoms recur will need surgical segmental resection. Liquid diet for now Examine rest of the colon after 4 weeks RECALL: Return 1 month Colonoscopy Assessment and Plan - Plan 02/20/18 Patient says she feels better. She has been afebrile for approximately 24 hrs now. Still on 2 L of supplemental oxygen. Oxygen sats are 96%. She will be titrated off of oxygen today. Will continue to monitor and possibly discharge later today. Plan discussed with the nurse. Keep oxygen sats above 92%. 1. Intractable nausea and vomiting secondary to colonic stenosis 2. Acute kidney injury secondary to dehydration secondary to #1. This patient is a 67-year-old female with a diagnosis of CKD and COPD. The patient presented to emerge from with complaints of nausea and vomiting. CT scan of the abdomen pelvis showed findings concerning with small bowel obstruction. The patient was admitted and kept n.p.o. GI evaluated the patient and the patient subsequently underwent EGD and colonoscopy. EGD did not show any significant findings. Colonoscopy showed stenosis in the sigmoid colon. The patient underwent dilation and decompression. She was subsequently started on a p.o. diet and her symptoms resolved. Patient is now tolerating diet without any complaints of nausea or vomiting. She is now having bowel movements. She can follow-up with GI in the next 1 month. She should also follow-up with a primary care doctor next 1-2 weeks. Patient was also found to be in acute kidney injury when she was first admitted with a serum creatinine elevated at 1.4. After the initiation of IV fluids the patient's serum creatinine had improved. 3. Left lower lobe CAPNA 4. COPD Patient presented with a infiltrate in the left lower lobe on cxr. Initially patient did not have any significant symptoms. On my evaluation yesterday patient was found to be febrile and was having a cough. Repeat cxr showed worsening of the infiltrate. She was started on IV antibiotics, she says she feels much better today. She has now been afebrile for 24 hrs. Patient will receive IV antibiotics for today then be discharged on 5 days of levaquin. She can follow up with [facility] Continue Symbicort, can continue albuterol. Scripts for medications were given to the patient prior to her discharge. PT evaluated the patient yesterday and will be discharged with a front wheel walker.
[2018-02-20] MEDS: Azithromycin Inj 250 MG in Sodium Chlor 0.9% Inj 250 ML IV.SIG SCH (14:26)
[2018-02-21] MEDS: Magnesium Oxide 400 MG Tablet PO SCH (08:36)
[2018-02-21] MEDS: Budesonide-Formoterol 160/4.5 MCG 6 GM Inhaler INH SCH (08:36)
[2018-02-21 08:59] VITALS: RESP 16
--- NOTE | 2018-02-21 10:28 | P.PNIM ---
Subjective Interval history: Patient says she feels better today. Physical Exam Vital signs: Vital Signs 02/20/18 12:00 02/20/18 14:39 02/20/18 16:00 Temperature 97.8 F 98.3 F Pulse Rate 94 H 120 H 90 Respiratory Rate 18 20 18 Blood Pressure 150/70 H 135/69 Pulse Oximetry 96 94 L 02/20/18 19:56 02/20/18 20:00 02/21/18 00:00 Temperature 97.8 F 98.5 F Pulse Rate 97 H 86 Respiratory Rate 18 18 Blood Pressure 124/73 141/66 H Pulse Oximetry 96 91 L 94 L 02/21/18 04:00 02/21/18 05:32 02/21/18 08:00 Temperature 97.2 F L 97.4 F L Pulse Rate 88 68 90 Respiratory Rate 18 18 16 Blood Pressure 130/66 145/70 H Pulse Oximetry 91 L 94 L Intake & Output 02/20/18 02/21/18 02/21/18 18:59 06:59 18:59 Intake Total 1790 / 1790 240 / 240 Output Total 650 / 650 Balance 1790 / 1790 -410 / -410 Weight 69.4 kg Intake: IV 1190 / 1190 NS Inj 1,000 ML @ 84 mls/hr IV. 840 / 840 CONT .[id number] [facility] Rx#:[id number] Azithromycin Inj 250 MG In NS 250 / 250 Inj 250 ML @ 250 mls/hr IV.SIG Q24H [facility] Rx#:[id number] Rocephin Inj 1,000 MG In NS Inj 100 / 100 100 ML @ 200 mls/hr IV.SIG Q24H [facility] Rx#:[id number] Oral 600 / 600 240 / 240 Output: Urine 650 / 650 Other: # Voids 4 Date of Last Bowel Movement 02/21/18 # Bowel Movements 4 1 Narrative: General patient in no acute distress HEENT extraocular movements are intact, clear oropharyngeal mucosa, no JVD Cardiovascular S1-S2 audible, RRR, no murmurs rubs or gallops Respiratory rhonchi left lower lobe. Abdomen soft, nontender, nondistended, normal bowel sounds Extremities no edema 2+ distal pulses in bilateral upper and lower extremities Neuro cranial nerves II through XII intact Results - Labs CBC & Chem 7: 02/16/18 04:16 02/18/18 04:00 - Procedures IMPRESSIONS: 1. Stenosis (narrowing) in the sigmoid colon, likely extrinsic and normal mucosa, traversed with difficulty . 2. Dilated proximal part of the colon and filled with air and stool, decompression done. RECOMMENDATIONS: Monitor clinically and if symptoms recur will need surgical segmental resection. Liquid diet for now Examine rest of the colon after 4 weeks RECALL: Return 1 month Colonoscopy Assessment and Plan - Plan 02/21/18 Patient says she feels better. She has been afebrile for the past few days. Still on 1 L of supplemental oxygen. Oxygen sats are 94%. Unsuccessful weaning the patient off of oxygen. She has used supplemental oxygen in the past approximately 2 yrs ago. Will perform a walk test for the need for home oxygen. Likely will be discharged today after she gets the home oxygen. Continue 3 more days of levaquin. Plan discussed with the nurse. Keep oxygen sats above 92%. 1. Intractable nausea and vomiting secondary to colonic stenosis 2. Acute kidney injury secondary to dehydration secondary to #1. This patient is a 67-year-old female with a diagnosis of CKD and COPD. The patient presented to emerge from with complaints of nausea and vomiting. CT scan of the abdomen pelvis showed findings concerning with small bowel obstruction. The patient was admitted and kept n.p.o. GI evaluated the patient and the patient subsequently underwent EGD and colonoscopy. EGD did not show any significant findings. Colonoscopy showed stenosis in the sigmoid colon. The patient underwent dilation and decompression. She was subsequently started on a p.o. diet and her symptoms resolved. Patient is now tolerating diet without any complaints of nausea or vomiting. She is now having bowel movements. She can follow-up with GI in the next 1 month. She should also follow-up with a primary care doctor next 1-2 weeks. Patient was also found to be in acute kidney injury when she was first admitted with a serum creatinine elevated at 1.4. After the initiation of IV fluids the patient's serum creatinine had improved. 3. Left lower lobe CAPNA 4. COPD Patient presented with a infiltrate in the left lower lobe on cxr. Initially patient did not have any significant symptoms. On my evaluation yesterday patient was found to be febrile and was having a cough. Repeat cxr showed worsening of the infiltrate. She was started on IV antibiotics, she says she feels much better today. She has now been afebrile for 24 hrs. Patient will receive IV antibiotics for today then be discharged on 5 days of levaquin. She can follow up with her PCP in a week at the [facility]. Continue Symbicort, can continue albuterol. Scripts for medications were given to the patient prior to her discharge. PT evaluated the patient yesterday and will be discharged with a front wheel walker.
[2018-02-21 12:02] VITALS: BP 123/72; PULSE 93; TEMP 97.3; O2SAT 96
== END 2018-02-21 14:40 | disposition home or self-care (01) | DRG 344 ==
LOC: NEPC 18:41 → NEDA 02-13 01:00 → HCIS 02-13 02:58 → N04 02-14 23:12
PROVIDERS: ADMIT Hospitalist; ATTEND Hospitalist
PROC: PANENDO (2018-02-17 09:52)
CPT/HCPCS: 71010; 71045; 74000; 74018; 74177; 80048; 80053; 81001; 82105; 82150; 82378; 82948; 82962; 83036; 83690; 83735; 84100; 84439; 84443; 85025; 85610; 85730; 86301; 90774; 90784; 93005; 94618; 94620; 94640; 94664; 94665; 96374; 97161; 99285; C8952; J0456; J0696; J0780; J1644; J1650; J2405; J3475; J3480; J7030; J7050; P9047; Q9967